=== PATIENT | male | born 1950 | race African-American/Black ===

== ENCOUNTER 2017-04-10 20:52 | Inpatient (IN) | payer MEDICARE, MEDICAID ==
[2017-04-10] MEDS ORDERED: Aspirin 300 MG Suppository ONE (21:09)
--- NOTE | 2017-04-10 21:10 | RAD ---
PORTABLE CHEST 04/10/17 PROVIDED CLINICAL HISTORY: ET repositioning. FINDINGS: There has been retraction of the endotracheal tube which now projects proximal to the heriberto. Enteric catheter is again noted, the tip of which is difficult to see with certainly but is below the diaphr agm. Bilateral patchy air space disease involving primarily the lower lung zones is again seen. IMPRESSION: As above. POS: ERASTO
[2017-04-10 21:28] LABS: Bilirubin Negative (Negative); Blood, Urine Large (Negative); Glucose, Urine (Dipstick) 500 mg/dL (Negative); Ketone, Urine Negative (Negative); Nitrite Negative (Negative); Protein, Urine (Dipstick) 100 mg/dL (Neg-Trace); Urobilinogen 0.2 mg/dL (0.2-1.0)
[2017-04-10 21:30] LABS: Bacteria/HPF None Seen HPF (None Seen)
[2017-04-10 21:39] LABS: Oxyhemoglobin 97.3 % (94.0-97.0); Sodium 140 mmol/L (135-148)
[2017-04-10 21:40] LABS: Renal Epithelial 0-3 HPF (0-3); Transitional Epithelial 0-3 HPF (0-3)
[2017-04-10 21:41] LABS: Mechanical Tidal Volume 500 ml; Modified Allen's Test POSITIVE; Spontaneous Rate 20 min; Vent YES
[2017-04-10 21:42] LABS: Mode SIMV; Pressure Support 10 cmH2O
[2017-04-10] MEDS ORDERED: Vancomycin HCl 1.5 GM in Sodium Chloride 0.9% 250 ML 300 ML IVPB SCH (22:15)
[2017-04-10] MEDS ORDERED: Norepinephrine 8 MG/0.9% NS 250 ML ONE (22:42)
[2017-04-10 22:49] LABS: Troponin I 4.959 ng/mL (< 0.028)
[2017-04-10] MEDS ORDERED: Heparin 10,000 UNITS/ 10 ML VIAL SLOW IVP SCH (23:45)
[2017-04-10] MEDS ORDERED: Heparin 25,000 units/D5W 500 ML IV SCH (23:45)
[2017-04-11 00:10] LABS: Lactic Acid - Sepsis 3.3 mmol/L (0.5-2.2)
[2017-04-11] MEDS ORDERED: Ondansetron HCl/PF 4 MG/2 ML Vial IVP PRN (00:22)
[2017-04-11] MEDS ORDERED: Ventilator Sedation Protocol 1 EACH FS ONE (00:22)
[2017-04-11] MEDS ORDERED: Acetaminophen 650 MG Suppository PR PRN (00:22)
[2017-04-11] MEDS ORDERED: CCU Electrolyte Replacement 1 EACH FS ONE (00:22)
[2017-04-11] MEDS ORDERED: Fentanyl 20 MCG/ML 250 ML IVPB SCH (00:34)
[2017-04-11] MEDS ORDERED: DISCONTINUE PREVIOUS NARCOTIC PAIN MEDICATIONS AND BENZODIAZEPINES FS SCH (00:34)
[2017-04-11] MEDS ORDERED: Potassium Phosphate 9 MMOL in Sodium Chloride 0.9% 100 ML IVPB PRN (00:35)
[2017-04-11] MEDS ORDERED: Potassium Chloride 20 MEQ TAB PO PRN (00:35)
[2017-04-11] MEDS ORDERED: Potassium Phosphate 15 MMOL in Sodium Chloride 0.9% 250 ML 250 ML IV PRN (00:35)
[2017-04-11] MEDS ORDERED: Magnesium Oxide 400 MG TAB PO PRN ×2 (00:35)
[2017-04-11] MEDS ORDERED: CCU ELECTROLYTE REPLACEMENT PROTOCOL FS PRN (00:35)
[2017-04-11] MEDS ORDERED: Magnesium 2 GM/NS 0.9% 100 ML 2 GM in Premix Bag 1 BAG IVPB PRN (00:35)
[2017-04-11] MEDS ORDERED: Potassium Phosphate 12 MMOL in Sodium Chloride 0.9% 250 ML 250 ML IV PRN (00:35)
[2017-04-11] MEDS ORDERED: Potassium Chloride 40 MEQ in Sodium Chloride 0.9% 250 ML 250 ML IVPB PRN (00:35)
[2017-04-11] MEDS: Sodium Chloride 0.9% 1,000 ML IV SCH ×3 (01:38→22:38)
[2017-04-11 02:32] LABS: Fibrinogen 349 mg/dL (253-463)
[2017-04-11 02:33] LABS: PTT 44.3 SEC (22.9-36.1); Prothrombin Time 17.6 SEC (12.0-14.7)
[2017-04-11 02:34] LABS: #Lymphocytes 1.3 thou/uL (1.20-3.40); #Monocytes 0.5 thou/uL (0.11-0.59); #Neutrophils 10.5 thou/uL (1.40-6.50); %Eosinophils 0.1 % (0.0-10.0); %Lymphocytes 10.3 % (21.0-51.0); %Monocytes 4.3 % (0.0-10.0); Hematocrit 34.7 % (42.0-52.0); Mean Platelet Volume 7.5 fL (7.4-10.4); Red Blood Cell (RBC) Count 3.76 mill/uL (4.70-6.10); White Blood Cell (WBC) Count 12.4 thou/uL (4.8-10.8)
[2017-04-11] MEDS: Cefepime 1 GM in Syringe 10 ML SLOW IVP SCH ×2 (02:40→14:34)
[2017-04-11 02:47] LABS: ALT (SGPT) 44 U/L (8-55); AST (SGOT) 97 U/L (5-34); Alkaline Phosphatase 92 U/L (40-150); Anion Gap 16 mmol/L (10-20); BUN (Urea Nitrogen) 12 mg/dL (8.4-25.7); Bilirubin, Total 0.4 mg/dL (0.2-1.2); Calc. Creatinine Clearance 69 mL/min (70-130); Calcium 7.4 mg/dL (7.8-10.44); Carbon Dioxide 19 mmol/L (23-31); Chloride 109 mmol/L (98-107); Estimated GFR-MDRD 63; Globulin 2.9 g/dL (2.4-3.5); Protein, Total 5.9 g/dL (5.8-8.1)
[2017-04-11 03:14] LABS: Troponin I 7.798 ng/mL (< 0.028)
--- NOTE | 2017-04-11 03:20 | HP ---
REASON FOR ADMISSION: Acute respiratory failure with hypoxia, septic shock, non -ST elevation NJ. HISTORY OF PRESENT ILLNESS: The patient was initially sent from [facility] to [place] [facility] for complaints of shortness of breath with low saturations. He also had a fever of 103 there. Patient was evaluated in [place] [facility]. He has chronic tracheal stoma. The endotracheal tube #7 was placed through the stoma and connected to the ventilator due to low saturations and acidosis with pH of 7.2. Then, patient was transferred here for higher level of care. Patient was paralyzed at [facility] for intubation. On arrival here, patient had systolic blood pressures dropping down to 70s and had to be placed on Levophed. He got total of 2 liters IV fluid here. His initial chest x-ray shows right lung infiltrate, likely aspiration. Patient has had blood and urine cultures drawn and given one dose of vancomycin and transferred to CCU. He also has a troponin of 4.9 with CK-MB of 10.4. Majority of this history is obtained by my talking to the ER physician, Dr. Mills, prior records and ER records as patient is sedated on the ventilator. 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 PERSONAL HISTORY: He is a resident of [facility]. No history of smoking, alcohol abuse, or drug usage. FAMILY HISTORY: Cannot be obtained as patient is currently on the ventilator. CURRENT MEDICATIONS: Per prior records, patient is on Norvasc 5 mg daily, aspirin 81 mg daily, atorvastatin 40 mg daily, Depakote 750 mg p.o. q.a.m., multivitamin 1 tab once daily, phenytoin 200 mg p.o. daily, Ultram p.r.n. for pain. REVIEW OF SYSTEMS: Cannot be obtained as patient is on the ventilator and is obtunded at present. PHYSICAL EXAMINATION: GENERAL: Patient is a 66-year-old male who is currently on the ventilator. VITAL SIGNS: Blood pressure on arrival was 110/70, later systolic blood pressures dropped down to 70s. Currently on Levophed. Patient's systolic blood pressure is around 90 now, pulse 110 per minute, respiratory rate is 16, temperature in [facility] was 103 degrees, is saturating 100% on 50% FIO2 on the ventilator. HEENT: Patient has tracheostomy with endotracheal tube inserted through the ostomy. The tube size is 7.0. Pupils are 3 mm and reacting sluggishly to right. Oral cavity patient has a nasogastric tube placed through the mouth. NECK: No elevated JVD. CARDIOVASCULAR: S1, S2 heard. Regular rhythm. RESPIRATORY: Air entry 1+ bilateral. Scattered rhonchi plus bilateral. ABDOMEN: Distended. The patient appears to have some discomfort on palpation of the abdomen. Bowel sounds are heard and no rigidity felt. EXTREMITIES: Patient has chronic wasting of both lower extremities, more so on the left. Mild peripheral edema, no ischemic ulcerations or gangrene. CENTRAL NERVOUS SYSTEM: Patient appears to have left hemiplegia. He has reflex withdrawal on right lower extremity. He was also seen moving his right upper extremity, but not the left upper. No other focal signs seen. PSYCHIATRIC: Cannot be assessed due to patient's current obtunded state on the ventilator. LABORATORY AND X-RAY FINDINGS: EKG done shows sinus tachycardia at 132 beats per minute. There are signs of LVH seen. White count of 13, H&H 13 and 41, platelet count 187 with 66% neutrophils, MCV is 87. PT, INR 14 and 1.1, PTT 35. Blood gas done at 9:30 p.m. shows a pH of 7.22, pCO2 of 53, pO2 of 213, bicarbonate of 21 on 100% FIO2 on SIMV. Sodium 139, potassium 5.0. Serum bicarbonate is 21, BUN 10, creatinine 1.28, glucose 387. Lactic acid was 6.3. Liver enzymes are within normal limits. Albumin is 3.9. Troponin I is 4.9 with CK-MB of 10.4. Initial troponin was 0.44. UA shows no signs of infection as such. A CT of the abdomen and pelvis results are pending at present. Chest x-ray done shows ET tube in place, bilateral patchy airspace disease is seen primarily in the lower lung zones. CLINICAL IMPRESSION AND PLAN: Patient will be admitted to ICU for septic shock , acute respiratory failure with hypoxia, non-ST elevation NJ. Patient's functional status is very poor and he is skilled nursing resident as well. Joel cultures have been obtained in the ER. He will be given 1 more liter of bolus for a total of 3 liters. I will also start him on stress dose of steroids along with broad spectrum antibiotics including cefepime, Levaquin, and vancomycin. He will be on aspirin 300 mg per rectal. Heparin drip has been started in the ER for his non-ST elevation NJ and will be continued. His overall prognosis is guarded. I have spoken to his , Ms. Adelso Talamantes. I have given complete updates of current labs and the plan. I also discussed code status with her and she would want him to be DNR. No chest compressions will be done on him, but she would like to continue the current ventilator and see how he does with weaning. We will consult Dr. Vega who is recreation facility manager for Pulmonology, Dr. Sena for Cardiology. Please note I have seen and examined patient on 04/10/2017. ROBERT
[2017-04-11] MEDS ORDERED: Dextrose 5% in Water 1,000 ML IV PRN (03:33)
[2017-04-11] MEDS ORDERED: Dextrose 50% Abboject 50 ML SYRINGE SLOW IVP PRN (03:33)
[2017-04-11] MEDS: HumaLOG 300 UNITS/3 ML VIAL SC PRN ×3 (04:25→15:58)
[2017-04-11 06:26] LABS: Troponin I 9.339 ng/mL (< 0.028)
[2017-04-11 07:26] LABS: Oxyhemoglobin 95.6 % (94.0-97.0); Sodium 140 mmol/L (135-148)
--- NOTE | 2017-04-11 07:43 | PDOC.PN ---
- Subjective Encounter Start Date: 04/11/17 Encounter Start Time: 07:42 Mr. Darden was seen today in follow-up of acute respiratory failure. He is intubated, but will open his eyes to voice. He appears comfortable. - Objective MAR Reviewed: Yes Vital Signs & Weight: Vital Signs (12 hours) Temp Pulse Resp BP BP Pulse Ox 04/11/17 07:00 103.0 F H 04/11/17 06:27 109 H 119/66 04/11/17 06:26 109 H 18 99 04/11/17 04:00 102.3 F H 04/11/17 03:24 18 04/11/17 01:46 126 H 18 97 04/11/17 01:11 102.8 F H 04/11/17 01:00 102.8 F H 115 H 18 111/65 99 Weight Weight 202 lb 9.677 oz Most Recent Monitor Data Heart Rate from ECG 110 NIBP 125/69 NIBP BP-Mean 91 Respiration from ECG 16 SpO2 100 I&O: 04/10/17 04/11/17 04/12/17 06:59 06:59 06:59 Intake Total 632 0 Output Total 645 140 Balance -13 -140 Result Diagrams: 04/12/17 04:50 04/12/17 04:50 Phys Exam - Physical Examination HEENT: PERRLA + rhonchi bilaterally, rales at the bases Cardiovascular: RRR, no significant murmur Gastrointestinal: soft, positive bowel sounds + mild distention Dx/Plan (1) Acute respiratory failure with hypoxemia Code(s): J96.01 - ACUTE RESPIRATORY FAILURE WITH HYPOXIA Status: Acute (2) Pneumonia Code(s): J18.9 - PNEUMONIA, UNSPECIFIED ORGANISM Status: Acute (3) Acute renal failure Status: Acute (4) Diabetes mellitus type 2 in obese Code(s): E11.69 - TYPE 2 DIABETES MELLITUS WITH OTHER SPECIFIED COMPLICATION; E66.9 - OBESITY, UNSPECIFIED Status: Acute (5) DIC (disseminated intravascular coagulation) Code(s): D65 - DISSEMINATED INTRAVASCULAR COAGULATION Status: Acute (6) CVA, old, aphasia Code(s): I69.320 - APHASIA FOLLOWING CEREBRAL INFARCTION Status: Acute (7) Sepsis Code(s): A41.9 - SEPSIS, UNSPECIFIED ORGANISM Status: Acute (8) NSTEMI (non-ST elevated myocardial infarction) Code(s): I21.4 - NON-ST ELEVATION (NSTEMI) MYOCARDIAL INFARCTION Status: Acute - Plan * Acute Respiratory Failure due to Pneumonia, with severe sepsis, accompanied by Acute renal failure, DIC, and elevated troponins. Patient also is hypotensive , and requiring pressors * Continue Vent support, and patient to be evaluated by Ornament Stapler today * Continue Levaquin, Cefipime, and Vancomycin * Continue Levophed for blood pressure support * Cardiology has been consulted for Elevated troponins, and Echo has been ordered * Consider initiating tube feeds * Prognosis is guarded.
[2017-04-11] MEDS: Norepinephrine 8 MG/0.9% NS 250 ML IVPB SCH ×2 (07:58→14:54)
--- NOTE | 2017-04-11 08:00 | RAD ---
PORTABLE CHEST ONE VIEW: 04/11/2017 at 4:22 a.m. HISTORY: Respiratory failure. FINDINGS/IMPRESSION: Comparison is made with the exam of 12:04 a.m. from the same date. No significant interval change is seen. POS: OFF
--- NOTE | 2017-04-11 08:13 | RAD ---
CHEST 1 VIEW: HISTORY: Central line placement. COMPARISON: Chest 1 view same day at 4:22 a.m. FINDINGS: The patient is being fed through a tracheostomy tube with endotracheal tube tip extending out to the heriberto approximately 2 cm. The central venous catheter is seen with tip at the right atrium without pneumothorax. Patchy opacities are present throughout the lungs bilaterally, similar. NO large effu asaf. cardiac silhouette is enlarged. IMPRESSION: No significant change in radiographic appearance of the chest. POS: FRED
--- NOTE | 2017-04-11 08:28 | CT ---
PRELIMINARY REPORT/[facility]/EMERGENCY AFTER HOURS PROCEDURE: EXAM: CT Abdomen and Pelvis Without Intravenous Contrast CLINICAL HISTORY: 66 years old, male; Signs and symptoms; Bloating; Patient HX: Eval for possible sbo or perf; Er10; 66 yo m is a transfer from another facility for respiratory failure. Pt had temp of 103, o2 stat in 70s , and BP of 160/70 upon ems arrival. Pt is hemiplegic from prior stroke. Nonverbal but able to respon d with head nods. TECHNIQUE: Axial computed tomography images of the abdomen and pelvis without intravenous contrast. Coronal reformatted images were created and reviewed. COMPARISON: No relevant prior studies available. FINDINGS: Prominent airspace opacities in the lower lungs bilaterally, greater on the right. Findings are lexis tible with bilateral pneumonia and/or aspiration. No significant pleural fluid. Prior cholecystectomy, no significant biliary tree dilation. No hydronephrosis of either kidney. No visible ureteral calculus. No perinephric fluid. The liver appears somewhat enlarged, with right lobe length of 22 cm. No definite/significant focal hepatic abnormality. Unremarkable appearance of the spleen, adrenal glands, and pancreas. No free air, ascites, or bowel distention. NG tube present. Tip extends into the stomach, but only 2-3 cm past the GE junction. Small umbilical hernia, containing only fat. Prominent aortic and other vascular calcifications. No evidence for abdominal aortic aneurysm. No retroperitoneal adenopathy. CT pelvis: The appendix is not identified with certainty, however no pericecal inflammatory changes are seen. There are no CT findings to strongly suggest diverticulitis. Shelley catheter in the urinary bladder. Prostate enlargement with transverse diameter of 5.5 cm. Possibly some mild diffuse urinary bladder wall thickening. This may be related to the prostate enlar gement. While nonspecific, this could also indicate evidence for cystitis. Please correlate clinically. IMPRESSION: No free air or bowel distention. No evidence for bowel obstruction. No evidence for appendicitis or diverticulitis. Prostate enlargement and urinary bladder wall thickening, see above. Prominent airspace opacities in the lower lungs bilaterally, compatible with bilateral pneumonia and/ or aspiration. Other findings discussed above. Thank you for allowing us to participate in the care of your patient. Dictated and Authenticated by: Csae Mims MD 04/11/2017 1:59 AM Central Time ([place] & [place]) FINAL REPORT CT ABDOMEN AND PELVIS WITHOUT CONTRAST: FINDINGS: There are bibasilar alveolar infiltrates and consolidation seen in both posterior lung bases. No evidence of small bowel obstruction. No free intraperitoneal air. I am in agreement with the preli minary report. Code QA POS: SJChristina
[2017-04-11] MEDS: Aspirin 300 MG Suppository PR SCH (08:37)
[2017-04-11] MEDS: Acetaminophen 325 MG TAB PO PRN (08:37)
[2017-04-11] MEDS: Divalproex Sodium 250 MG (DR) TAB PO SCH (08:37)
[2017-04-11] MEDS: Famotidine/PF 20 mg/2ml Vial SLOW IVP SCH ×2 (08:38→19:44)
[2017-04-11 08:43] LABS: Mechanical Tidal Volume 500 ml; Mode SIMV.PSV; Modified Allen's Test POSITIVE; Pressure Support 10 cmH2O; Vent YES
[2017-04-11] MEDS: Propofol 1,000 MG/100 ML VIAL IV PRN ×2 (09:55→17:39)
--- NOTE | 2017-04-11 10:47 | CON ---
DATE OF CONSULTATION: 04/11/2017 CONSULTING PHYSICIAN: Dr. Jj. REASON FOR CONSULTATION: Dislodgement of tracheostomy and respiratory failure requiring mechanical v entilation. HISTORY OF PRESENT ILLNESS: Mr. Darden is a 66-year-old male originally seen by Dr. Tejada back in 10 10 when he presented with respiratory failure secondary to pneumonia and obstructive sleep apnea. He underwent tracheostomy placement at that time and that has been in place for many years. He was at a detention, apparently short time ago, he pulled out his tracheostomy tube, I am not sure how reva g it was out prior to being admitted, he was brought to the emergency room last night with fever, pne umonia and low O2 sats. A size #7 endotracheal tube was placed through his stoma and it was connecte d to ventilator. They tried different size tracheostomies, but were unable to pass it. PAST MEDICAL HISTORY: 1. Massive stroke. 2. Bedbound status. 3. Left hemiplegia. 4. Obstructive sleep apnea. 5. Diabetes mellitus type 2. 6. Hyperlipidemia. 7. Gastroesophageal reflux. 8. Glaucoma. PAST SURGICAL HISTORY: 1. Tracheostomy placement. 2. At some point, he had a feeding tube, but has been removed. MEDICATIONS PRIOR TO ADMISSION: Aspirin, Norvasc, atorvastatin, Depakote, multivitamins, phenytoin, Ultram. FAMILY MEDICAL HISTORY: Unremarkable. REVIEW OF SYSTEMS: Cannot be obtained as the patient is on the ventilator and cannot talk. PHYSICAL EXAMINATION: VITAL SIGNS: Pulse 105, blood pressure 130/70, O2 sat 100%, respiratory rate 18. GENERAL: The patient is sedated on mechanical ventilation. HEENT: Remarkable for right naris NG tube. He has a size #7 endotracheal tube going through his nec k stoma. CARDIOVASCULAR: S1, S2, slightly tachycardic. LUNGS: Coarse rhonchi bilaterally. ABDOMEN: Soft, obese, nontender. EXTREMITIES: No edema. LABORATORY DATA AND X-RAY FINDINGS: White blood cell count 12.4, hemoglobin 11, hematocrit 34, plate let count 172. INR 1.4. PH 7.22, pCO2 53, pO2 of 213 and that was on SIMV rate 14, tidal volume 500 , PEEP 5, pressure support 10. Sodium 140, potassium 4.3, chloride 109, CO2 19, BUN 12, creatinine 1 .3, glucose 412. Troponin 9.3. His chest x-ray shows infiltrate on the left. ASSESSMENT: 1. Pneumonia. 2. Elevated troponin. 3. History of tracheostomy that is chronic indwelling. 4. History of massive stroke. PLAN: 1. I discussed with Dr. Delacruz about revising the trach in the operating room tomorrow. 2. Continue antibiotics. 3. Wean off Levophed drip as tolerated, which is currently being given for septic shock. 4. Continue steroids. 5. I will notify Dr. Tejada of the patient's admission.
[2017-04-11] MEDS: Vancomycin HCl 1.25 GM in Sodium Chloride 0.9% 250 ML 250 ML IVPB SCH (11:34)
[2017-04-11] MEDS: Lorazepam 2 MG/ML VIAL SLOW IVP PRN ×3 (12:21→22:32)
--- NOTE | 2017-04-11 13:15 | CON ---
DATE OF CONSULTATION: 04/11/2017 REASON FOR CONSULTATION: Elevated troponin and respiratory failure. PRIMARY PHARMACY BENEFITS COORDINATOR: Dr. Jesus Lai. HISTORY OF PRESENT ILLNESS: Mr. Darden is an unfortunate 66-year-old gentleman who has been seen an d evaluated by Dr. Jesus Lai over the last 11 years. He was first seen in 2005 where he had a large CVA. He had EKG changes in addition to elevated troponin at that time. He has had a followup stress study performed in 2009 that was negative for ischemia. He recently presented with respiratory failure. He pulled his trach out. He was sedated. According to the nurse, Eliceo, he was neurologically intact prior to propofol. He d enied chest pain or pressure. He states he was comfortable. PAST MEDICAL AND SURGICAL HISTORY: CVA, bedbound, acid reflux, hyperlipidemia, diabetes mellitus, ob structive sleep apnea, hemiplegia, glaucoma and tracheostomy. CURRENT MEDICATIONS: Norvasc, atorvastatin, aspirin, Depakote, multivitamin, phenytoin and Ultram. REVIEW OF SYSTEMS: Unobtainable. PHYSICAL EXAMINATION: GENERAL: He is currently sedated. VITAL SIGNS: Blood pressure 148/76, pulse 102 and respirations 20. NEUROLOGIC: The patient is alert and oriented x3 with no focal neurologic deficits. HEENT: Sclerae without icterus. Mouth has moist mucous membranes with normal pallor. NECK: No JVD. Carotid upstroke brisk. No bruits bilaterally. LUNGS: Clear to auscultation with unlabored respirations. BACK: No scoliosis or kyphosis. CARDIAC: Regular rate and rhythm with normal S1 and S2. No S3 or S4 noted. No significant rubs, murmurs, thrills, or gallops noted throughout the precordium. PMI is not displa wilian. There is no parasternal heave. ABDOMEN: Soft, nontender, nondistended. No peritoneal signs present. No hepatosplenomegaly. No abnormal striae. EXTREMITIES: 2+ femoral and 2+ dorsalis pedis pulses. No cyanosis, clubbing, or edema. SKIN: No gross abnormalities. PERTINENT LABORATORY DATA: Hemoglobin 11.4. Creatinine 1.38 with a chloride of 109. Peak troponin 9.339. IMAGING DATA: Initial EKG did show ST segment depression suggesting ischemia, which is now improved after intubation. IMPRESSION: 1. Elevated troponin. 2. Previous history of cerebrovascular accident. 3. Diabetes mellitus. 4. Respiratory failure. RECOMMENDATIONS: From a CV standpoint, would recommend conservative therapy. His EKG has normalized . He was not complaining of any symptoms prior to this episode. His respiratory failure, likely rel ated to removal of his trach. At this point, would recommend conservative therapy given his comorbid ities. Would continue aspirin and atorvastatin. He is off pressors. Would add low dose Coreg. We will continue to follow with you.
--- NOTE | 2017-04-11 14:58 | CON ---
DATE OF CONSULTATION: 04/11/2017 REASON FOR CONSULTATION: Tracheostomy stenosis. HISTORY OF PRESENT ILLNESS: The patient is a 66-year-old black male. In 2005, I placed a tracheosto my and PEG tube. His PEG tube was subsequently left out after removed at several times. He has had tracheostomy since that time I saw him. I subsequently performed a cholecystectomy in 2008. I have not seen him subsequently. He presented to the hospital with fever, evidence of sepsis, respiratory failure, with a tracheostomy tube that was apparently removed by him, but we are not certain how long before he presented it was removed. The patient was intubated with a size #7 endotracheal tube. Attempts at placing another tr acheostomy tube; however, we are unsuccessful and I am consulted for further assistance with this. Patient is currently sedated in the intensive care unit on ventilator. He is receiving pressors (usi ng Levophed). PAST MEDICAL HISTORY: 1. History of cerebrovascular accident. 2. Bed bound. 3. Left hemiplegia. 4. Obstructive sleep apnea. 5. Diabetes mellitus. 6. Hyperlipidemia. 7. Reflux. PAST SURGICAL HISTORY: 1. Tracheostomy placement. 2. PEG tube placement. 3. Cholecystectomy. MEDICATIONS PRIOR TO ADMISSION: Include Norvasc, atorvastatin, Depakote, phenytoin, Ultram. PERSONAL/SOCIAL HISTORY: He lives in a care home. PHYSICAL EXAMINATION: VITAL SIGNS: His pulse is 98, blood pressure 153/81, oxygen saturation 100%. GENERAL: Elderly obese black male resting in bed. HEENT: He has an endotracheal tube emanating from his tracheostomy site. Remainder of neck is suppl e and nontender. LUNGS: Clear to auscultation. CARDIAC: Regular rate and rhythm. ABDOMEN: Obese but soft. 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 It is un known how long this is out before it was recannulated. PLAN: In the operating room tomorrow, I will revise his tracheostomy and place a new tracheostomy tu be.
[2017-04-11] MEDS: Atorvastatin Calcium 40 MG TAB PO SCH (19:44)
[2017-04-11] MEDS: Levofloxacin 750 mg/D5W 500 MG in Premix Bag 1 BAG IVPB SCH (19:44)
[2017-04-12] MEDS: HumaLOG 300 UNITS/3 ML VIAL SC PRN ×5 (00:10→21:27)
[2017-04-12] MEDS: Vancomycin HCl 1.25 GM in Sodium Chloride 0.9% 250 ML 250 ML IVPB SCH ×2 (00:10→13:58)
[2017-04-12] MEDS: Propofol 1,000 MG/100 ML VIAL IV PRN (02:02)
[2017-04-12] MEDS: Cefepime 1 GM in Syringe 10 ML SLOW IVP SCH ×2 (02:02→17:54)
[2017-04-12] MEDS: Sodium Chloride 0.9% 1,000 ML IV SCH ×2 (05:51→17:54)
[2017-04-12 05:52] LABS: Anion Gap 11 mmol/L (10-20); BUN (Urea Nitrogen) 12 mg/dL (8.4-25.7); Calc. Creatinine Clearance 95 mL/min (70-130); Carbon Dioxide 22 mmol/L (23-31); Chloride 112 mmol/L (98-107); Estimated GFR-MDRD 90
[2017-04-12] MEDS: Potassium Chloride 40 MEQ in Premix Bag 1 BAG IVPB PRN (06:12)
[2017-04-12 06:21] LABS: Mean Platelet Volume 7.5 fL (7.4-10.4); Red Blood Cell (RBC) Count 3.58 mill/uL (4.70-6.10); White Blood Cell (WBC) Count 15.6 thou/uL (4.8-10.8)
[2017-04-12 06:29] LABS: Band 43 % (5-11); Metamyelocyte 3 % (0-0); Myelocyte 1 % (0-0); Neutrophil 51 % (42-75)
[2017-04-12 07:14] LABS: Oxyhemoglobin 92.3 % (94.0-97.0); Sodium 146 mmol/L (135-148)
[2017-04-12 07:15] LABS: Mechanical Tidal Volume 500 ml; Mode SIMV/PSV; Pressure Support 10 cmH2O; Vent YES
--- NOTE | 2017-04-12 07:50 | PRG ---
DATE OF SERVICE: 04/12/2017 SUBJECTIVE: Mr. Darden continues to be sedated. He is currently on propofol. OBJECTIVE: VITAL SIGNS: Blood pressure 178/61, pulse 94, respirations 22. LUNGS: Clear to auscultation. HEART: Regular rate and rhythm. ABDOMEN: Soft, nontender, nondistended. EXTREMITIES: No edema. PERTINENT LABORATORY DATA: Include a creatinine of 1.1 with a potassium of 3.0, chloride 112. IMPRESSION: 1. Elevated troponin. 2. Hypoxia after removal of trach. 3. Previous cerebrovascular accident. 4. Coronary artery disease. RECOMMENDATIONS: At this point, we will continue conservative therapy. He is currently on antibioti c therapy for potential sepsis. Would continue statin therapy in addition to aspirin. May also bene fit from low dose beta benedict therapy.
--- NOTE | 2017-04-12 08:35 | PRG ---
DATE OF SERVICE: 04/12/2017 He is intubated on the vent with a trach in place. He is going for revision this morning of his trac heostomy site. He is sedated. He is encephalopathic. PHYSICAL EXAMINATION: VITAL SIGNS: His sats are 99, blood pressure 150/57, pulse 80, respirations 18. CHEST: Chest revealed bilateral rhonchi and crackles. CARDIAC: Sinus tachycardia. ABDOMEN: Soft. NEURO: Neurologically sedated. White count 15,000, H&H 11 and 32, platelet count 146, pO2 is 67, pCO2 of 86.47, rate of 20, 40%, 500 tidal volume, sodium is normal. Electrolytes are normal. Potassium is 3. X-ray shows bilateral pneumonia. IMPRESSION: 1. Respiratory failure. 2. Cerebrovascular accident. 3. Pulmonary infiltrate. 4. Aspiration pneumonia. PLAN: Once the trach has been revised, we will start weaning. In the meantime, continue antibiotics , Maxipime, Levaquin and steroids. I will follow. One-half hour critical care time.
--- NOTE | 2017-04-12 08:43 | PDOC.PN ---
- Subjective Encounter Start Date: 04/12/17 Encounter Start Time: 08:41 Mr. Darden was seen today in follow-up of Pneumonia with sepsis. He is intubated. He is awake and trying to communicate with me. I am not able to make out what he is trying to say. - Objective MAR Reviewed: Yes Vital Signs & Weight: Vital Signs (12 hours) Temp Pulse Resp BP Pulse Ox 04/12/17 07:00 97.7 F 04/12/17 06:26 95 117/61 04/12/17 06:00 22 H 04/12/17 04:00 99.9 F H 22 H 04/12/17 02:00 22 H 04/12/17 00:00 98.8 F 104 H 22 H 100 04/11/17 23:23 95 18 100 04/11/17 22:00 22 H Weight Admit Weight 202 lb 9.664 oz Weight 202 lb 9.664 oz Most Recent Monitor Data Heart Rate from ECG 96 NIBP 114/61 NIBP BP-Mean 78 Respiration from ECG 14 SpO2 99 I&O: 04/11/17 04/12/17 04/13/17 06:59 06:59 06:59 Intake Total 632 3345 Output Total 645 5155 220 Balance -13 -1810 -220 Result Diagrams: 04/12/17 04:50 04/12/17 04:50 Additional Labs: Accuchecks 04/12/17 04/12/17 04/11/17 05:11 00:08 15:53 POC Glucose 303 H 383 H 318 H 04/11/17 10:05 POC Glucose 316 H Phys Exam - Physical Examination HEENT: PERRLA Respiratory: no wheezing + coarse breath sounds Cardiovascular: RRR, no significant murmur Gastrointestinal: soft, non-tender, positive bowel sounds Musculoskeletal: no edema Dx/Plan (1) Acute respiratory failure with hypoxemia Code(s): J96.01 - ACUTE RESPIRATORY FAILURE WITH HYPOXIA Status: Acute (2) Pneumonia Code(s): J18.9 - PNEUMONIA, UNSPECIFIED ORGANISM Status: Acute (3) Acute renal failure Status: Acute (4) Diabetes mellitus type 2 in obese Code(s): E11.69 - TYPE 2 DIABETES MELLITUS WITH OTHER SPECIFIED COMPLICATION; E66.9 - OBESITY, UNSPECIFIED Status: Acute (5) DIC (disseminated intravascular coagulation) Code(s): D65 - DISSEMINATED INTRAVASCULAR COAGULATION Status: Acute (6) CVA, old, aphasia Code(s): I69.320 - APHASIA FOLLOWING CEREBRAL INFARCTION Status: Acute (7) Sepsis Code(s): A41.9 - SEPSIS, UNSPECIFIED ORGANISM Status: Acute (8) NSTEMI (non-ST elevated myocardial infarction) Code(s): I21.4 - NON-ST ELEVATION (NSTEMI) MYOCARDIAL INFARCTION Status: Acute - Plan * Pneumonia with acute respiratory failure and sepsis- he remains on mechanical ventilation * He is now off Levophed * Continue Vancomycin, Cefepime, and Levaquin * Plan is to have the tracheostomy revised today * DM- blood glucose is elevated- will add scheduled long acting Insulin * Seizure disorder- Dilatin to be given IV today, and after procedure can change back to via tube * Replace potassium as per protocol .
[2017-04-12] MEDS: Lorazepam 2 MG/ML VIAL SLOW IVP PRN ×3 (08:56→23:15)
[2017-04-12] MEDS: Famotidine/PF 20 mg/2ml Vial SLOW IVP SCH ×2 (08:57→21:26)
[2017-04-12] MEDS ORDERED: FLU VACC TS2017-18 (>65YR) 0.5 ML SYRINGE IM ONE (09:00)
[2017-04-12] MEDS: Aspirin 300 MG Suppository PR SCH (09:00)
--- NOTE | 2017-04-12 09:26 | RAD ---
PORTABLE CHEST: HISTORY: Dyspnea. Ventilator followup. COMPARISON: 04/11/17. Tracheostomy device again noted. Central line unchanged. There are bilateral lung infiltrates. The re are rather prominent right perihilar infiltrates and extensive alveolar infiltrates throughout the left lung. No significant interval change. IMPRESSION: No significant interval change from 04/11/17. POS: OFF
[2017-04-12] MEDS: Fosphenytoin Sodium 200 MG in Sodium Chloride 0.9% 100 ML IVPB SCH (09:48)
[2017-04-12] MEDS: Divalproex Sodium 250 MG (DR) TAB PO SCH (09:49)
[2017-04-12] MEDS: Insulin Detemir 100 UNITS/ML 12 UNITS in Pre-Filled Syringe 1 EACH SC SCH ×2 (09:49→21:26)
[2017-04-12 11:27] LABS: Vancomycin, Trough 16.1 ug/mL
[2017-04-12] MEDS ORDERED: Midazolam HCl 2 mg/2 ml Vial ONE (15:31)
[2017-04-12] MEDS ORDERED: Fentanyl 100 MCG/2 ML VIAL ONE (15:31)
[2017-04-12] MEDS ORDERED: Bupivacaine/Epinephrine 0.25% 30 ML VIAL ONE ×2 (15:36→16:05)
[2017-04-12] MEDS ORDERED: Propofol 200 MG/20 ML VIAL ONE (16:30)
[2017-04-12] MEDS ORDERED: Lidocaine 1% PF 5 ML VIAL ONE (16:30)
[2017-04-12] MEDS ORDERED: PHENYLEPHRINE-NS 100 MCG/ML 10 ML SYRINGE ONE (16:30)
[2017-04-12] MEDS: Atorvastatin Calcium 40 MG TAB PO SCH (21:26)
[2017-04-12] MEDS: Levofloxacin 750 mg/D5W 500 MG in Premix Bag 1 BAG IVPB SCH (21:31)
[2017-04-13] MEDS: Vancomycin HCl 1.25 GM in Sodium Chloride 0.9% 250 ML 250 ML IVPB SCH ×2 (00:05→12:31)
[2017-04-13] MEDS: Propofol 1,000 MG/100 ML VIAL IV PRN ×4 (00:05→19:57)
[2017-04-13] MEDS: Cefepime 1 GM in Syringe 10 ML SLOW IVP SCH ×2 (03:27→15:06)
[2017-04-13] MEDS: Sodium Chloride 0.9% 1,000 ML IV SCH ×3 (03:28→21:25)
[2017-04-13] MEDS: HumaLOG 300 UNITS/3 ML VIAL SC PRN ×4 (04:09→23:16)
[2017-04-13 06:44] LABS: Mechanical Tidal Volume 500 ml; Mode SIMV/PSV; Modified Allen's Test NOT DONE; Oxyhemoglobin 93.7 % (94.0-97.0); Pressure Support 10 cmH2O; Sodium 149 mmol/L (135-148); Vent YES
[2017-04-13] MEDS: Aspirin 300 MG Suppository PR SCH (08:03)
[2017-04-13] MEDS: Insulin Detemir 100 UNITS/ML 12 UNITS in Pre-Filled Syringe 1 EACH SC SCH (08:08)
[2017-04-13] MEDS: Fosphenytoin Sodium 200 MG in Sodium Chloride 0.9% 100 ML IVPB SCH (08:08)
[2017-04-13] MEDS: Famotidine/PF 20 mg/2ml Vial SLOW IVP SCH (08:08)
[2017-04-13] MEDS: Divalproex Sodium 250 MG (DR) TAB PO SCH (08:18)
--- NOTE | 2017-04-13 08:42 | RAD ---
PORTABLE CHEST: HISTORY: Respiratory distress. COMPARISON: Prior day's exam. FINDINGS: A tracheostomy tube is present. The NG tube and the right-sided central line are unchanged in positi on. Interstitial alveolar lung changes are stable. IMPRESSION: Interval placement of tracheostomy tube, which is in satisfactory position; otherwise stable chest. POS: [facility]
--- NOTE | 2017-04-13 11:28 | PDOC.PN ---
- Subjective Encounter Start Date: 04/13/17 Encounter Start Time: 10:40 Subjective: on trach and vent, awakens to touch -: is on mild sedation - Objective MAR Reviewed: Yes Vital Signs & Weight: Vital Signs (12 hours) Temp Pulse Resp BP Pulse Ox 04/13/17 11:01 90 131/77 04/13/17 10:00 14 04/13/17 08:00 98.3 F 90 14 99 04/13/17 06:18 94 118/69 04/13/17 06:16 94 35 H 100 04/13/17 06:00 32 H 04/13/17 04:00 98.1 F 14 04/13/17 02:30 89 102/56 L 04/13/17 02:00 14 04/13/17 01:13 87 106/50 L 04/13/17 00:00 98.0 F 39 H Weight Admit Weight 202 lb 9.664 oz Weight 202 lb 9.664 oz Most Recent Monitor Data Heart Rate from ECG 93 NIBP 131/77 NIBP BP-Mean 91 Respiration from ECG 16 SpO2 100 I&O: 04/12/17 04/13/17 04/14/17 06:59 06:59 06:59 Intake Total 3345 2819 60 Output Total 5155 1990 400 Balance -1810 829 -340 Result Diagrams: 04/12/17 04:50 04/12/17 04:50 Additional Labs: Accuchecks 04/13/17 04/13/17 04/12/17 10:39 04:05 21:25 POC Glucose 253 H 269 H 285 H 04/12/17 04/12/17 17:38 11:57 POC Glucose 309 H 323 H Phys Exam - Physical Examination HEENT: PERRLA, moist MMs Neck: no JVD trach+ Respiratory: no wheezing rhonchi+ Cardiovascular: RRR, no significant murmur Gastrointestinal: soft, non-tender, positive bowel sounds Musculoskeletal: pulses present chronic wasting and foot drop of b/l LE Dx/Plan (1) Acute respiratory failure with hypoxemia Code(s): J96.01 - ACUTE RESPIRATORY FAILURE WITH HYPOXIA Status: Acute Comment: had revision of his trach (2) NSTEMI (non-ST elevated myocardial infarction) Code(s): I21.4 - NON-ST ELEVATION (NSTEMI) MYOCARDIAL INFARCTION Status: Acute (3) Pneumonia Code(s): J18.9 - PNEUMONIA, UNSPECIFIED ORGANISM Status: Acute Qualifiers: Pneumonia type: aspiration pneumonia Aspiration pneumonia type: due to regurgitated food (4) Sepsis Code(s): A41.9 - SEPSIS, UNSPECIFIED ORGANISM Status: Acute Qualifiers: Sepsis type: sepsis due to unspecified organism Qualified Code(s): A41.9 - Sepsis, unspecified organism (5) Dyslipidemia Code(s): E78.5 - HYPERLIPIDEMIA, UNSPECIFIED Status: Chronic (6) GERD (gastroesophageal reflux disease) Code(s): K21.9 - GASTRO-ESOPHAGEAL REFLUX DISEASE WITHOUT ESOPHAGITIS Status: Chronic Qualifiers: Esophagitis presence: esophagitis presence not specified Qualified Code(s) : K21.9 - Gastro-esophageal reflux disease without esophagitis (7) Obesity (BMI 30.0-34.9) Code(s): E66.9 - OBESITY, UNSPECIFIED Status: Chronic (8) CVA, old, aphasia Code(s): I69.320 - APHASIA FOLLOWING CEREBRAL INFARCTION Status: Chronic (9) Diabetes mellitus type 2 in obese Code(s): E11.69 - TYPE 2 DIABETES MELLITUS WITH OTHER SPECIFIED COMPLICATION; E66.9 - OBESITY, UNSPECIFIED Status: Chronic - Plan on broad spectrum antibiotics, vanc, cefipime and levaquin -: steroids iv, asp, lovenox for dvt prophylaxis -: oral phenytoin and depakote -: ng feeds if ok with Pulm -: weaning per pulm advice * . Review of Systems - Medications/Allergies Allergies/Adverse Reactions: Allergies Allergy/AdvReac Type Severity Reaction Status Date / Time No Known Drug Allergies Allergy Verified 03/17/16 05:25 Medications: Current Medications Acetaminophen (Tylenol) 650 mg [place] Q4H PRN PRN Reason: Headache/Fever or Pain Last Admin: 04/11/17 02:31 Dose: 650 mg Acetaminophen (Tylenol) 650 mg PO Q4H PRN PRN Reason: Headache/Fever or Pain Last Admin: 04/11/17 08:37 Dose: 650 mg Albuterol/Ipratropium (Duoneb) 3 ml NEB [id number] FLEX Last Admin: 04/13/17 06:16 Dose: 3 ml Aspirin (Aspirin) 300 mg [place] DAILY FLEX Last Admin: 04/13/17 08:03 Dose: 300 mg Atorvastatin Calcium (Lipitor) 40 mg PO HS [facility] Last Admin: 04/12/17 21:26 Dose: 40 mg Dextrose/Water (Dextrose 50%) 25 gm SLOW IVP PRN PRN PRN Reason: Hypoglycemia Divalproex Sodium (Depakote) 750 mg PO QAM [facility] Last Admin: 04/13/17 08:18 Dose: 750 mg Famotidine (Pepcid) 20 mg SLOW IVP Q12HR [facility] Last Admin: 04/13/17 08:08 Dose: 20 mg Glucagon (Glucagon) 1 mg IM PRN PRN PRN Reason: Hypoglycemia Cefepime HCl 1 gm/ Syringe 10 mls @ 120 mls/hr SLOW IVP 0300,1500 [facility] Last Admin: 04/13/17 03:27 Dose: 10 mls Levofloxacin 500 mg/ Device 100 mls @ 100 mls/hr IVPB Q24HR [facility] Last Admin: 04/12/17 21:31 Dose: 100 mls Norepinephrine Bitartrate (Levophed) 250 mls @ 0 mls/hr IVPB INF [facility]; Titrate PRN Reason: Protocol Last Admin: 04/11/17 14:54 Dose: 250 mls Sodium Chloride (Normal Saline 0.9%) 1,000 mls @ 100 mls/hr IV .Q10H [facility] Last Admin: 04/13/17 03:28 Dose: 1,000 mls Vancomycin HCl 1.25 gm/ Sodium (Chloride) 250 mls @ 166.67 mls/hr IVPB 1200, 2359 [facility] Last Admin: 04/13/17 00:05 Dose: 250 mls Fentanyl (Fentanyl Cadd) 250 mls @ 0 mls/hr IVPB INF FLEX; Titrate PRN Reason: Protocol Stop: 05/11/17 00:34 Fentanyl Citrate (Fentanyl Bolus) 250 mls @ 0 mls/hr IVPB PRN PRN; As Directed PRN Reason: Breakthrough pain Stop: 05/11/17 00:34 Potassium Chloride 40 meq/ (Sodium Chloride) 270 mls @ 135 mls/hr IVPB ASDIR PRN PRN Reason: FOR SERUM K+ 2.5 - 3.5 Potassium Chloride 40 meq/ (Device) 100 mls @ 50 mls/hr IVPB ASDIR PRN PRN Reason: FOR SERUM K+ 2.5 - 3.5 Last Admin: 04/12/17 06:12 Dose: 100 mls Magnesium Sulfate 1 gm/ Sodium (Chloride) 102 mls @ 102 mls/hr IV PRN PRN PRN Reason: MAG LEVEL 1.4 - 2.0 Magnesium Sulfate 2 gm/ Device 100 mls @ 100 mls/hr IVPB ASDIR PRN PRN Reason: MAGNESIUM < 1.4 Potassium Phosphate 9 mmol/ (Sodium Chloride) 103 mls @ 25.75 mls/hr IVPB ASDIR PRN PRN Reason: Phosphate 1.0-1.8 Potassium Phosphate 12 mmol/ (Sodium Chloride) 254 mls @ 63.5 mls/hr IV ASDIR PRN PRN Reason: Serum phosphate 0.5-0.9 Potassium Phosphate 15 mmol/ (Sodium Chloride) 255 mls @ 63.75 mls/hr IV ASDIR PRN PRN Reason: Serum Phos < 0.5 Dextrose/Water (D5w) 1,000 mls @ 0 mls/hr IV .Q0M PRN; As Directed PRN Reason: Hypoglycemia Fosphenytoin Sodium 200 mg/ (Sodium Chloride) 104 mls @ 208 mls/hr IVPB DAILY [facility] Last Admin: 04/13/17 08:08 Dose: 104 mls Insulin Detemir 12 units/ (Miscellaneous Medication) 0.12 mls @ 0 mls/hr SC BID [facility] Last Admin: 04/13/17 08:08 Dose: 0.12 mls Insulin Human Lispro (Humalog) 0 units SC .MODERATE SLIDING SC PRN PRN Reason: Moderate Correctional Scale Last Admin: 04/13/17 10:39 Dose: 6 unit Lorazepam (Ativan) 2 mg SLOW IVP Q2H PRN PRN Reason: Anxiety to achieve Ulrich 2-3 Stop: 05/11/17 00:34 Last Admin: 04/12/17 23:15 Dose: 2 mg Magnesium Oxide (Magnesium Oxide) 400 mg PO BIDPRN PRN PRN Reason: FOR SERUM MAG 1.4 - 2.0 Magnesium Oxide (Magnesium Oxide) 800 mg PO PRN PRN PRN Reason: FOR SERUM MAG < 1.4 Methylprednisolone Sodium Succinate (Solu-Medrol) 40 mg IVP Q6HR [facility] Last Admin: 04/13/17 05:40 Dose: 40 mg Miscellaneous Medication (Phos-Nak) 1 pkt PO TIDPRN PRN PRN Reason: FOR PHOS LEVEL 1.0 - 1.8 Miscellaneous Medication (Phos-Nak) 2 pkt PO TIDPRN PRN PRN Reason: FOR PHOS LEVEL 0.5 - 1.0 Morphine Sulfate (Morphine) 2 mg IVP Q2H PRN PRN Reason: Breakthrough pain Stop: 05/11/17 00:34 Discontinue Previous Narcotic Pain Medications And Benzodiazepines 1 each FS .ONE FLEX Stop: 05/11/17 00:34 Ccu Electrolyte (Replacement Protocol) 0 each FS PRN PRN PRN Reason: FOR ELECTROLYTE REPLACEMENT Ondansetron HCl (Zofran) 4 mg IVP Q6H PRN PRN Reason: Nausea/Vomiting Potassium Chloride (K-Dur) 40 meq PO ASDIR PRN PRN Reason: FOR SERUM K+ 2.5 - 3.5 Potassium Chloride (Klor-Con) 40 meq PER TUBE ASDIR PRN PRN Reason: FOR SERUM K+ 2.5-3.5 Propofol (Diprivan) 1,000 mg IV INF PRN; Protocol PRN Reason: TO ACHIEVE ULRICH SCORE 2-3 Stop: 05/11/17 00:34 Last Admin: 04/13/17 08:03 Dose: 1,000 mg Sodium Chloride (Flush - Normal Saline) 10 ml IVF Q12HR [facility] Last Admin: 04/13/17 08:09 Dose: 10 ml Sodium Chloride (Flush - Normal Saline) 10 ml IVF PRN PRN PRN Reason: Saline Flush
[2017-04-13] MEDS: Morphine 4 MG/ML VIAL SLOW IVP PRN ×3 (13:43→23:27)
[2017-04-13] MEDS: Insulin Detemir 100 UNITS/ML 18 UNITS in Pre-Filled Syringe 1 EACH SC SCH (19:51)
[2017-04-13] MEDS: Famotidine 20 MG TAB PO SCH (19:52)
[2017-04-13] MEDS: Atorvastatin Calcium 40 MG TAB PO SCH (19:52)
[2017-04-13] MEDS: Lorazepam 2 MG/ML VIAL SLOW IVP PRN (19:52)
[2017-04-13] MEDS: Levofloxacin 750 mg/D5W 500 MG in Premix Bag 1 BAG IVPB SCH (21:22)
[2017-04-13] MEDS: Acetaminophen 325 MG TAB PO PRN (21:36)
--- NOTE | 2017-04-13 22:19 | PRG ---
DATE OF SERVICE: 04/13/2017 Mr. Darden had his trach revised. He was ventilated this morning; we turned him down to a rate of 8 . He is tachypneic really no matter what rate we have him at. I was hoping we would get him into a trach collar tomorrow, but we will probably leave him on ventilator tonight and then try moving towar ds a trach collar tomorrow. PHYSICAL EXAMINATION VITAL SIGNS: His heart rate is 100, respiratory rate is 20s-30s. Blood pressure is 107/59, low dose s of morphine do not really help much, nor does an IM dose of Haldol. LUNGS: His lungs are clear. HEART: Regular rhythm. ABDOMEN: Soft and nontender. Chest radiograph is essentially unchanged, this was reviewed by me. LABORATORY DATA White count 15.6 yesterday. There is no CBC today. Glucoses are in the 200 and 300 range. IMPRESSION: 1. Chronic respiratory failure. 2. History of cerebrovascular accident. 3. Probable aspiration pneumonia. 4. Morbid obesity with 5 feet tall and 202 pounds with a BMI of 39.6. 5. History of a massive cerebrovascular accident with left hemiplegia. 6. History of obstructive sleep apnea, obviously now treated with a tracheostomy. 7. Diabetes. 8. History of a PEG, but this is no longer in place. PLAN: As above, we will continue ventilation. Reassess him and try to decrease ventilatory support as may varela
[2017-04-14] MEDS: Cefepime 1 GM in Syringe 10 ML SLOW IVP SCH ×2 (03:23→16:00)
[2017-04-14] MEDS: HumaLOG 300 UNITS/3 ML VIAL SC PRN ×3 (04:45→22:20)
[2017-04-14] MEDS: Propofol 1,000 MG/100 ML VIAL IV PRN ×4 (04:53→22:24)
[2017-04-14 05:06] LABS: #Lymphocytes 1.1 thou/uL (1.20-3.40); #Neutrophils 14.8 thou/uL (1.40-6.50); %Basophils 0.2 % (0.0-1.0); %Eosinophils 0.3 % (0.0-10.0); %Lymphocytes 6.7 % (21.0-51.0); %Monocytes 5.9 % (0.0-10.0); Hematocrit 28.3 % (42.0-52.0); Mean Platelet Volume 7.5 fL (7.4-10.4); Red Blood Cell (RBC) Count 3.03 mill/uL (4.70-6.10); White Blood Cell (WBC) Count 17.1 thou/uL (4.8-10.8)
[2017-04-14 05:08] LABS: Anion Gap 10 mmol/L (10-20); BUN (Urea Nitrogen) 17 mg/dL (8.4-25.7); Calc. Creatinine Clearance 94 mL/min (70-130); Calcium 7.3 mg/dL (7.8-10.44); Carbon Dioxide 25 mmol/L (23-31); Chloride 118 mmol/L (98-107); Estimated GFR-MDRD 89
--- NOTE | 2017-04-14 08:14 | OP ---
DATE OF SURGERY: 04/12/2017 PREOPERATIVE DIAGNOSIS: Tracheostomy stenosis. POSTOPERATIVE DIAGNOSIS: Tracheostomy stenosis. OPERATION PERFORMED: Tracheostomy revision with resection of some calcified tracheal tissue. SURGEON: Babatunde Delacruz MD ANESTHESIA: General endotracheal. INDICATIONS: The patient is a 66-year-old black male in whom I placed a tracheostomy tube about 11 y ears previously. He had removed his tracheostomy tube recently at his retirement and by the time h e presented to the hospital, a similar size tracheostomy tube cannot be replaced. He was intubated w ith a size #7 endotracheal tube and placed on the ventilator secondary to respiratory insufficiency. Attempts at placing appropriate sized tracheostomy tube at bedside failed and I was consulted for re vision of his tracheostomy to place an additional tracheostomy tube of appropriate size. DESCRIPTION OF OPERATION: Informed consent was obtained. The patient was taken to the operating ernesto m where general endotracheal anesthesia was maintained using his endotracheal tube through the trache ostomy opening. The patient was then intubated by anesthesia with an orotracheal intubation. After was certain that the tube was passed through the cords, the endotracheal tube through the tracheostom y opening was removed and I was able to visualize the orotracheal tube through the tracheostomy openi ng. The neck was then prepped with Betadine and draped in sterile fashion. Local anesthetic was infiltra keaton using 0.25% Marcaine with epinephrine. A transverse incision was created on either side of the t racheostomy opening. There was skin extending down into the tracheostomy opening and I could not pas s a suction catheter much less my finger down into the opening. I dissected through the strictured s kin down into the tracheostomy opening. The soft tissue was divided on either side of midline using electrocautery. The tracheostomy car inspector was used to gain visualization internally. Dissection was eventually carried down onto the tracheostomy tube. I still could not pass my finger down to the op ening because of the stenosis. There was found to be thickened, hard, calcified tissue that appeared to likely be a part of the trachea. I had to excise a small piece of this on each side. At the poi nt that I could adequately visualize the anterior aspect of the trachea, a #8 [employer] Shiley tracheostomy tube was obtained. The orotracheal tube was removed under vision and at the point that it was adequ ately removed, placed the tracheostomy tube through the opening and insufflated the cuff. The ventil ator circuit was secured to the tracheostomy tube using a Karnack adapter. The tracheostomy flange wa s then secured to the skin on either side of midline using a 3-0 nylon suture. Tracheostomy dressing s and ties were placed in the usual fashion. There were no complications. Patient tolerated the pro cedure well. There was no evidence of ongoing bleeding. The patient was returned to the Intensive C are Unit, still on the ventilator, but in stable condition.
[2017-04-14] MEDS: Aspirin 81 mg Enteric Coated Tablet PO SCH (09:19)
[2017-04-14] MEDS: Atenolol 25 MG TAB PO SCH (09:20)
[2017-04-14] MEDS: Divalproex Sodium 250 MG (DR) TAB PO SCH (09:22)
[2017-04-14] MEDS: Famotidine 20 MG TAB PO SCH ×2 (09:23→20:16)
[2017-04-14] MEDS: Enoxaparin Sodium 40 MG/0.4 ML SYRINGE SC SCH (09:23)
[2017-04-14] MEDS: Insulin Detemir 100 UNITS/ML 18 UNITS in Pre-Filled Syringe 1 EACH SC SCH ×2 (09:25→20:17)
--- NOTE | 2017-04-14 09:44 | RAD ---
CHEST 1 VIEW PORTABLE: Date: 04/14/17 HISTORY: Ventilator dependent patient. FINDINGS: Comparison made to previous exam from 04/13/17. AP view of chest demonstrates nasogastric tube in place. The patient has a tracheostomy tube in place . A right jugular central line is seen with distal tip overlying the right atrium. Pulmonary vascular congestion is seen. Diffuse bilateral air space opacities seen in both lungs concerning for pulmonar y edema or bilateral pneumonia. No evidence of effusions seen. No other significant interval change i s noted. Radiographic appearance of the chest is stable. IMPRESSION: Stable AP view of chest. POS: [facility]
[2017-04-14] MEDS: Sodium Chloride 0.9% 1,000 ML IV SCH ×2 (09:49→20:22)
[2017-04-14 10:58] LABS: Oxyhemoglobin 93.2 % (94.0-97.0); Sodium 152 mmol/L (135-148)
[2017-04-14 11:09] LABS: Mechanical Tidal Volume 500 ml; Mode SIMV/PSV; Modified Allen's Test NOT DONE; Pressure Support 10 cmH2O; Vent YES
--- NOTE | 2017-04-14 13:18 | PDOC.PN ---
- Subjective Encounter Start Date: 04/14/17 Encounter Start Time: 10:40 Subjective: on vent, trach sedated - Objective MAR Reviewed: Yes Vital Signs & Weight: Vital Signs (12 hours) Temp Pulse Resp BP Pulse Ox 04/14/17 12:00 98.7 F 25 H 04/14/17 10:00 30 H 04/14/17 09:20 84 108/58 L 04/14/17 08:00 98.6 F 36 H 04/14/17 07:44 84 114/65 04/14/17 07:42 88 36 H 100 04/14/17 06:00 25 H 04/14/17 04:00 98.6 F 27 H 04/14/17 02:32 88 04/14/17 02:00 29 H Weight Admit Weight 202 lb 9.664 oz Weight 202 lb 9.664 oz Most Recent Monitor Data Heart Rate from ECG 81 NIBP 94/53 NIBP BP-Mean 70 Respiration from ECG 23 SpO2 100 I&O: 04/13/17 04/14/17 04/15/17 06:59 06:59 06:59 Intake Total 2819 1932 0 Output Total 1989 1805 280 Balance 829 127 -280 Result Diagrams: 04/14/17 04:30 04/14/17 04:30 Additional Labs: Accuchecks 04/14/17 04/14/17 04/13/17 12:17 04:31 23:16 POC Glucose 162 H 161 H 224 H 04/13/17 16:15 POC Glucose 217 H Phys Exam - Physical Examination HEENT: PERRLA, sclera anicteric Neck: no JVD trach+ Respiratory: no wheezing, no rales Cardiovascular: RRR, no significant murmur Gastrointestinal: soft, non-tender, positive bowel sounds Musculoskeletal: no edema, pulses present Neurological: non-focal, moves all 4 limbs Dx/Plan (1) Acute respiratory failure with hypoxemia Code(s): J96.01 - ACUTE RESPIRATORY FAILURE WITH HYPOXIA Status: Acute Comment: had revision of his trach (2) NSTEMI (non-ST elevated myocardial infarction) Code(s): I21.4 - NON-ST ELEVATION (NSTEMI) MYOCARDIAL INFARCTION Status: Acute (3) Pneumonia Code(s): J18.9 - PNEUMONIA, UNSPECIFIED ORGANISM Status: Acute Qualifiers: Pneumonia type: aspiration pneumonia Aspiration pneumonia type: due to regurgitated food (4) Sepsis Code(s): A41.9 - SEPSIS, UNSPECIFIED ORGANISM Status: Acute Qualifiers: Sepsis type: sepsis due to unspecified organism Qualified Code(s): A41.9 - Sepsis, unspecified organism (5) Dyslipidemia Code(s): E78.5 - HYPERLIPIDEMIA, UNSPECIFIED Status: Chronic (6) GERD (gastroesophageal reflux disease) Code(s): K21.9 - GASTRO-ESOPHAGEAL REFLUX DISEASE WITHOUT ESOPHAGITIS Status: Chronic Qualifiers: Esophagitis presence: esophagitis presence not specified Qualified Code(s) : K21.9 - Gastro-esophageal reflux disease without esophagitis (7) Obesity (BMI 30.0-34.9) Code(s): E66.9 - OBESITY, UNSPECIFIED Status: Chronic (8) CVA, old, aphasia Code(s): I69.320 - APHASIA FOLLOWING CEREBRAL INFARCTION Status: Chronic (9) Diabetes mellitus type 2 in obese Code(s): E11.69 - TYPE 2 DIABETES MELLITUS WITH OTHER SPECIFIED COMPLICATION; E66.9 - OBESITY, UNSPECIFIED Status: Chronic - Plan suggest peg for nutrition -: weaning per pulm advice -: is on cefipime and levaquin, may switch to omnicef(cultures -ve) -: may switch to oral steroids -: sbp holding up, urine is high colored , is on 100mls/hr NS * . Review of Systems - Medications/Allergies Allergies/Adverse Reactions: Allergies Allergy/AdvReac Type Severity Reaction Status Date / Time No Known Drug Allergies Allergy Verified 03/17/16 05:25 Medications: Current Medications Acetaminophen (Tylenol) 650 mg [place] Q4H PRN PRN Reason: Headache/Fever or Pain Last Admin: 04/11/17 02:31 Dose: 650 mg Acetaminophen (Tylenol) 650 mg PO Q4H PRN PRN Reason: Headache/Fever or Pain Last Admin: 04/13/17 21:36 Dose: 650 mg Albuterol/Ipratropium (Duoneb) 3 ml NEB [id number] [facility] Last Admin: 04/14/17 07:42 Dose: 3 ml Aspirin (Ecotrin) 81 mg PO DAILY FLEX Last Admin: 04/14/17 09:19 Dose: 81 mg Atenolol (Tenormin) 25 mg PO DAILY [facility] Last Admin: 04/14/17 09:20 Dose: 25 mg Atorvastatin Calcium (Lipitor) 40 mg PO HS [facility] Last Admin: 04/13/17 19:52 Dose: 40 mg Dextrose/Water (Dextrose 50%) 25 gm SLOW IVP PRN PRN PRN Reason: Hypoglycemia Divalproex Sodium (Depakote) 750 mg PO QAM [facility] Last Admin: 04/14/17 09:22 Dose: 750 mg Enoxaparin Sodium (Lovenox) 40 mg SC 0900 [facility] Last Admin: 04/14/17 09:23 Dose: 40 mg Famotidine (Pepcid) 20 mg PO Q12HR [facility] Last Admin: 04/14/17 09:23 Dose: 20 mg Glucagon (Glucagon) 1 mg IM PRN PRN PRN Reason: Hypoglycemia Cefepime HCl 1 gm/ Syringe 10 mls @ 120 mls/hr SLOW IVP 0300,1500 [facility] Last Admin: 04/14/17 03:23 Dose: 10 mls Levofloxacin 500 mg/ Device 100 mls @ 100 mls/hr IVPB Q24HR [facility] Last Admin: 04/13/17 21:22 Dose: 100 mls Norepinephrine Bitartrate (Levophed) 250 mls @ 0 mls/hr IVPB INF [facility]; Titrate PRN Reason: Protocol Last Admin: 04/11/17 14:54 Dose: 250 mls Sodium Chloride (Normal Saline 0.9%) 1,000 mls @ 100 mls/hr IV .Q10H [facility] Last Admin: 04/14/17 09:49 Dose: 1,000 mls Fentanyl (Fentanyl Cadd) 250 mls @ 0 mls/hr IVPB INF [facility]; Titrate PRN Reason: Protocol Stop: 05/11/17 00:34 Fentanyl Citrate (Fentanyl Bolus) 250 mls @ 0 mls/hr IVPB PRN PRN; As Directed PRN Reason: Breakthrough pain Stop: 05/11/17 00:34 Potassium Chloride 40 meq/ (Sodium Chloride) 270 mls @ 135 mls/hr IVPB ASDIR PRN PRN Reason: FOR SERUM K+ 2.5 - 3.5 Potassium Chloride 40 meq/ (Device) 100 mls @ 50 mls/hr IVPB ASDIR PRN PRN Reason: FOR SERUM K+ 2.5 - 3.5 Last Admin: 04/12/17 06:12 Dose: 100 mls Magnesium Sulfate 1 gm/ Sodium (Chloride) 102 mls @ 102 mls/hr IV PRN PRN PRN Reason: MAG LEVEL 1.4 - 2.0 Magnesium Sulfate 2 gm/ Device 100 mls @ 100 mls/hr IVPB ASDIR PRN PRN Reason: MAGNESIUM < 1.4 Potassium Phosphate 9 mmol/ (Sodium Chloride) 103 mls @ 25.75 mls/hr IVPB ASDIR PRN PRN Reason: Phosphate 1.0-1.8 Potassium Phosphate 12 mmol/ (Sodium Chloride) 254 mls @ 63.5 mls/hr IV ASDIR PRN PRN Reason: Serum phosphate 0.5-0.9 Potassium Phosphate 15 mmol/ (Sodium Chloride) 255 mls @ 63.75 mls/hr IV ASDIR PRN PRN Reason: Serum Phos < 0.5 Dextrose/Water (D5w) 1,000 mls @ 0 mls/hr IV .Q0M PRN; As Directed PRN Reason: Hypoglycemia Insulin Detemir 18 units/ (Miscellaneous Medication) 0.18 mls @ 0 mls/hr SC BID [facility] Last Admin: 04/14/17 09:25 Dose: 0.18 mls Insulin Human Lispro (Humalog) 0 units SC .AGGRESSIVE SLIDING PRN; Protocol PRN Reason: AGGRESSIVE SLIDING SCALE Last Admin: 04/14/17 12:22 Dose: 3 unit Lorazepam (Ativan) 2 mg SLOW IVP Q2H PRN PRN Reason: Anxiety to achieve Ulrich 2-3 Stop: 05/11/17 00:34 Last Admin: 04/13/17 19:52 Dose: 2 mg Magnesium Oxide (Magnesium Oxide) 400 mg PO BIDPRN PRN PRN Reason: FOR SERUM MAG 1.4 - 2.0 Magnesium Oxide (Magnesium Oxide) 800 mg PO PRN PRN PRN Reason: FOR SERUM MAG < 1.4 Methylprednisolone Sodium Succinate (Solu-Medrol) 20 mg IVP Q8HR [facility] Last Admin: 04/14/17 05:52 Dose: 20 mg Miscellaneous Medication (Phos-Nak) 1 pkt PO TIDPRN PRN PRN Reason: FOR PHOS LEVEL 1.0 - 1.8 Miscellaneous Medication (Phos-Nak) 2 pkt PO TIDPRN PRN PRN Reason: FOR PHOS LEVEL 0.5 - 1.0 Morphine Sulfate (Morphine) 2 mg SLOW IVP Q2H PRN PRN Reason: .BREAKTHROUGH PAIN Last Admin: 04/13/17 23:27 Dose: 2 mg Discontinue Previous Narcotic Pain Medications And Benzodiazepines 1 each FS .ONE FLEX Stop: 05/11/17 00:34 Ccu Electrolyte (Replacement Protocol) 0 each FS PRN PRN PRN Reason: FOR ELECTROLYTE REPLACEMENT Ondansetron HCl (Zofran) 4 mg IVP Q6H PRN PRN Reason: Nausea/Vomiting Phenytoin Sodium (Dilantin) 200 mg PO HS [facility] Last Admin: 04/13/17 21:21 Dose: 200 mg Potassium Chloride (K-Dur) 40 meq PO ASDIR PRN PRN Reason: FOR SERUM K+ 2.5 - 3.5 Potassium Chloride (Klor-Con) 40 meq PER TUBE ASDIR PRN PRN Reason: FOR SERUM K+ 2.5-3.5 Propofol (Diprivan) 1,000 mg IV INF PRN; Protocol PRN Reason: TO ACHIEVE ULRICH SCORE 2-3 Stop: 05/11/17 00:34 Last Admin: 04/14/17 12:21 Dose: 1,000 mg Sodium Chloride (Flush - Normal Saline) 10 ml IVF Q12HR [facility] Last Admin: 04/14/17 09:24 Dose: 10 ml Sodium Chloride (Flush - Normal Saline) 10 ml IVF PRN PRN PRN Reason: Saline Flush
[2017-04-14] MEDS ORDERED: Pancrelipase DR 12000 1 CAP FS PRN (18:21)
[2017-04-14] MEDS ORDERED: Sodium Bicarbonate Tab 325 MG TAB PER TUBE PRN (18:21)
[2017-04-14] MEDS: Lorazepam 2 MG/ML VIAL SLOW IVP PRN (20:16)
[2017-04-14] MEDS: Atorvastatin Calcium 40 MG TAB PO SCH (20:16)
[2017-04-14] MEDS: Levofloxacin 750 mg/D5W 500 MG in Premix Bag 1 BAG IVPB SCH (21:42)
--- NOTE | 2017-04-14 22:04 | PRG ---
DATE OF SERVICE: 04/14/2017 Delio Darden remains responsive. He is sedated for ventilation. When he is not sedated, he gets extremely tachypneic. His ventilator rate still set at 80. He was tried on basically a spontaneous breathing trial later t laura and respiratory rate kicked up into the 40s. OBJECTIVE: VITAL SIGNS: Blood pressure 102/53, respiratory rate is in 30s to 20s when he is sedated. Intake and output is positive 127 mL. LUNGS: Distant, clear anteriorly. HEART: Regular rhythm. ABDOMEN: Soft. EXTREMITIES: Without asymmetry. LABORATORY DATA: White count 17.1, hemoglobin 9.5, platelets 161,000. Sodium 149, potassium 3.7, chloride 118, bicarb 25, BUN 70, creatinine 1.02, glucose is between 139 a nd 224 today. Chest radiograph shows an increase in interstitial markings and bibasilar infiltrates suggestive of edema. IMPRESSION: 1. Respiratory failure. 2. Obesity. 3. Status post tracheostomy requiring a revision. 4. History of cerebrovascular accident. 5. Probable aspiration pneumonia. 6. Morbid obesity. 7. History of diabetes. 8. History of PEG, but this is no longer in place. PLAN: Continue slow weaning attempts from mechanical ventilation. Continue blood pressure medicines . Continue broad spectrum antimicrobial therapy. Continue sedation and insulin. We will continue with steroids. We will slowly wean him hopefully as tolerated. Critical care time 30 minutes.
[2017-04-15] MEDS: Cefepime 1 GM in Syringe 10 ML SLOW IVP SCH ×2 (02:33→14:32)
[2017-04-15] MEDS: Lorazepam 2 MG/ML VIAL SLOW IVP PRN ×2 (03:07→22:28)
[2017-04-15] MEDS: Propofol 1,000 MG/100 ML VIAL IV PRN ×4 (03:07→20:31)
[2017-04-15 04:50] LABS: PTT 36.2 SEC (22.9-36.1)
[2017-04-15 05:12] LABS: Band 3 % (5-11); Hematocrit 24.3 % (42.0-52.0); Neutrophil 73 % (42-75); Nucleated RBC 1 % (0); Red Blood Cell (RBC) Count 2.57 mill/uL (4.70-6.10); White Blood Cell (WBC) Count 8.6 thou/uL (4.8-10.8)
[2017-04-15 05:15] LABS: Anion Gap 10 mmol/L (10-20); BUN (Urea Nitrogen) 20 mg/dL (8.4-25.7); Calc. Creatinine Clearance 98 mL/min (70-130); Calcium 6.8 mg/dL (7.8-10.44); Carbon Dioxide 24 mmol/L (23-31); Chloride 119 mmol/L (98-107); Estimated GFR-MDRD Greater than 90
[2017-04-15] MEDS: HumaLOG 300 UNITS/3 ML VIAL SC PRN ×3 (06:16→18:43)
[2017-04-15] MEDS: Sodium Chloride 0.9% 1,000 ML IV SCH ×2 (06:27→09:59)
[2017-04-15 07:14] LABS: Oxyhemoglobin 94.7 % (94.0-97.0); Sodium 152 mmol/L (135-148)
[2017-04-15 07:16] LABS: Mechanical Tidal Volume 500 ml; Modified Allen's Test NOT DONE; Vent YES
[2017-04-15 07:17] LABS: Mode SIMV/PSV; Pressure Support 10 cmH2O
[2017-04-15] MEDS: Famotidine 20 MG TAB PO SCH ×2 (08:32→22:32)
[2017-04-15] MEDS: Aspirin 81 mg Enteric Coated Tablet PO SCH (08:34)
[2017-04-15] MEDS: Divalproex Sodium 250 MG (DR) TAB PO SCH (08:34)
[2017-04-15] MEDS: Enoxaparin Sodium 40 MG/0.4 ML SYRINGE SC SCH (08:35)
[2017-04-15] MEDS: Atenolol 25 MG TAB PO SCH (08:48)
[2017-04-15] MEDS ORDERED: Furosemide 40 MG/4 ML VIAL IVP SCH (08:52)
[2017-04-15] MEDS ORDERED: Magnesium Sulfate 3 GM in Sodium Chloride 0.9% 100 ML IVPB SCH (09:00)
[2017-04-15] MEDS: Insulin Detemir 100 UNITS/ML 18 UNITS in Pre-Filled Syringe 1 EACH SC SCH ×2 (09:37→22:30)
--- NOTE | 2017-04-15 10:18 | RAD ---
AP VIEW CHEST: Date: 04/15/17 INDICATION: Ventilator dependent patient. FINDINGS: Comparison made to previous exam from 04/14/17. AP view of chest demonstrates nasogastric tube in place. A tracheostomy tube is in place. A right jug ular central line is present. Bilateral perihilar and lung parenchymal air space opacities seen concerning for possible pneumonia o r pulmonary edema. IMPRESSION: Stable AP view of chest not significantly changed since the previous exam. POS: [facility]
--- NOTE | 2017-04-15 11:17 | PDOC.PN ---
- Subjective Encounter Start Date: 04/15/17 Encounter Start Time: 09:40 Subjective: on vent sedated -: opens eyes to stimulation, not oriented - Objective MAR Reviewed: Yes Vital Signs & Weight: Vital Signs (12 hours) Temp Pulse Resp BP Pulse Ox 04/15/17 10:00 44 H 04/15/17 08:48 90 119/52 L 04/15/17 08:00 99.1 F 88 31 H 98 04/15/17 06:59 94 127/73 04/15/17 06:56 97 48 H 99 04/15/17 06:00 34 H 04/15/17 04:00 99 F 34 H 04/15/17 01:55 91 115/57 L 04/15/17 00:14 91 39 H 98 04/15/17 00:00 100.2 F H Weight Admit Weight 202 lb 9.664 oz Weight 202 lb 9.664 oz Most Recent Monitor Data Heart Rate from ECG 93 NIBP 123/50 NIBP BP-Mean 90 Respiration from ECG 26 SpO2 100 I&O: 04/14/17 04/15/17 04/16/17 06:59 06:59 06:59 Intake Total 1932 3171 371 Output Total 1805 2025 590 Balance 127 1146 -219 Result Diagrams: 04/15/17 04:00 04/15/17 04:00 Additional Labs: Accuchecks 04/14/17 04/14/17 04/14/17 22:19 17:56 12:17 POC Glucose 169 H 139 H 162 H Phys Exam - Physical Examination HEENT: PERRLA, sclera anicteric Neck: no JVD trach+ Respiratory: no wheezing, no rales Cardiovascular: RRR, no significant murmur Gastrointestinal: soft, non-tender, no distention, positive bowel sounds Musculoskeletal: no edema, pulses present left hemiplegia Dx/Plan (1) Acute respiratory failure with hypoxemia Code(s): J96.01 - ACUTE RESPIRATORY FAILURE WITH HYPOXIA Status: Acute Comment: had revision of his trach (2) NSTEMI (non-ST elevated myocardial infarction) Code(s): I21.4 - NON-ST ELEVATION (NSTEMI) MYOCARDIAL INFARCTION Status: Acute (3) Pneumonia Code(s): J18.9 - PNEUMONIA, UNSPECIFIED ORGANISM Status: Acute Qualifiers: Pneumonia type: aspiration pneumonia Aspiration pneumonia type: due to regurgitated food (4) Sepsis Code(s): A41.9 - SEPSIS, UNSPECIFIED ORGANISM Status: Acute Qualifiers: Sepsis type: sepsis due to unspecified organism Qualified Code(s): A41.9 - Sepsis, unspecified organism (5) Dyslipidemia Code(s): E78.5 - HYPERLIPIDEMIA, UNSPECIFIED Status: Chronic (6) GERD (gastroesophageal reflux disease) Code(s): K21.9 - GASTRO-ESOPHAGEAL REFLUX DISEASE WITHOUT ESOPHAGITIS Status: Chronic Qualifiers: Esophagitis presence: esophagitis presence not specified Qualified Code(s) : K21.9 - Gastro-esophageal reflux disease without esophagitis (7) Obesity (BMI 30.0-34.9) Code(s): E66.9 - OBESITY, UNSPECIFIED Status: Chronic (8) CVA, old, aphasia Code(s): I69.320 - APHASIA FOLLOWING CEREBRAL INFARCTION Status: Chronic Comment: left hemiplegia, with wasting of LE, foot drop b/l (9) Diabetes mellitus type 2 in obese Code(s): E11.69 - TYPE 2 DIABETES MELLITUS WITH OTHER SPECIFIED COMPLICATION; E66.9 - OBESITY, UNSPECIFIED Status: Chronic - Plan on cefipime and levaquin -: getting ng feeding -: will likely need peg on sunday by -: iv steroids, weaning as tolerated -: Hb holding up around 7g, watch for sod and urine output * . Review of Systems - Medications/Allergies Allergies/Adverse Reactions: Allergies Allergy/AdvReac Type Severity Reaction Status Date / Time No Known Drug Allergies Allergy Verified 03/17/16 05:25 Medications: Current Medications Acetaminophen (Tylenol) 650 mg [place] Q4H PRN PRN Reason: Headache/Fever or Pain Last Admin: 04/11/17 02:31 Dose: 650 mg Acetaminophen (Tylenol) 650 mg PO Q4H PRN PRN Reason: Headache/Fever or Pain Last Admin: 04/13/17 21:36 Dose: 650 mg Albuterol/Ipratropium (Duoneb) 3 ml NEB [id number] [facility] Lipase/Protease/Amylase ([place] [id number]) 1 cap FS .PER PROTOCOL PRN PRN Reason: TUBE OCCLUSION PROTOCOL Aspirin (Ecotrin) 81 mg PO DAILY [facility] Last Admin: 04/15/17 08:34 Dose: 81 mg Atenolol (Tenormin) 25 mg PO DAILY [facility] Last Admin: 04/15/17 08:48 Dose: 25 mg Atorvastatin Calcium (Lipitor) 40 mg PO HS [facility] Last Admin: 04/14/17 20:16 Dose: 40 mg Dextrose/Water (Dextrose 50%) 25 gm SLOW IVP PRN PRN PRN Reason: Hypoglycemia Divalproex Sodium (Depakote) 750 mg PO QAM [facility] Last Admin: 04/15/17 08:34 Dose: 750 mg Enoxaparin Sodium (Lovenox) 40 mg SC 0900 [facility] Last Admin: 04/15/17 08:35 Dose: 40 mg Famotidine (Pepcid) 20 mg PO Q12HR [facility] Last Admin: 04/15/17 08:32 Dose: 20 mg Furosemide (Lasix) 60 mg IVP NOW [facility] Stop: 04/15/17 12:00 Last Admin: 04/15/17 09:58 Dose: 60 mg Glucagon (Glucagon) 1 mg IM PRN PRN PRN Reason: Hypoglycemia Cefepime HCl 1 gm/ Syringe 10 mls @ 120 mls/hr SLOW IVP 0300,1500 [facility] Last Admin: 04/15/17 02:33 Dose: 10 mls Levofloxacin 500 mg/ Device 100 mls @ 100 mls/hr IVPB Q24HR [facility] Last Admin: 04/14/17 21:42 Dose: 100 mls Norepinephrine Bitartrate (Levophed) 250 mls @ 0 mls/hr IVPB INF FLEX; Titrate PRN Reason: Protocol Last Admin: 04/11/17 14:54 Dose: 250 mls Fentanyl (Fentanyl Cadd) 250 mls @ 0 mls/hr IVPB INF [facility]; Titrate PRN Reason: Protocol Stop: 05/11/17 00:34 Fentanyl Citrate (Fentanyl Bolus) 250 mls @ 0 mls/hr IVPB PRN PRN; As Directed PRN Reason: Breakthrough pain Stop: 05/11/17 00:34 Potassium Chloride 40 meq/ (Sodium Chloride) 270 mls @ 135 mls/hr IVPB ASDIR PRN PRN Reason: FOR SERUM K+ 2.5 - 3.5 Potassium Chloride 40 meq/ (Device) 100 mls @ 50 mls/hr IVPB ASDIR PRN PRN Reason: FOR SERUM K+ 2.5 - 3.5 Last Admin: 04/12/17 06:12 Dose: 100 mls Magnesium Sulfate 1 gm/ Sodium (Chloride) 102 mls @ 102 mls/hr IV PRN PRN PRN Reason: MAG LEVEL 1.4 - 2.0 Magnesium Sulfate 2 gm/ Device 100 mls @ 100 mls/hr IVPB ASDIR PRN PRN Reason: MAGNESIUM < 1.4 Potassium Phosphate 9 mmol/ (Sodium Chloride) 103 mls @ 25.75 mls/hr IVPB ASDIR PRN PRN Reason: Phosphate 1.0-1.8 Potassium Phosphate 12 mmol/ (Sodium Chloride) 254 mls @ 63.5 mls/hr IV ASDIR PRN PRN Reason: Serum phosphate 0.5-0.9 Potassium Phosphate 15 mmol/ (Sodium Chloride) 255 mls @ 63.75 mls/hr IV ASDIR PRN PRN Reason: Serum Phos < 0.5 Dextrose/Water (D5w) 1,000 mls @ 0 mls/hr IV .Q0M PRN; As Directed PRN Reason: Hypoglycemia Insulin Detemir 18 units/ (Miscellaneous Medication) 0.18 mls @ 0 mls/hr SC BID [facility] Last Admin: 04/15/17 09:37 Dose: 0.18 mls Magnesium Sulfate 3 gm/ Sodium (Chloride) 106 mls @ 100 mls/hr IVPB NOW [facility] Stop: 04/15/17 12:00 Last Admin: 04/15/17 10:35 Dose: 106 mls Sodium Chloride (Normal Saline 0.9%) 1,000 mls @ 50 mls/hr IV .Q20H [facility] Last Admin: 04/15/17 09:59 Dose: 1,000 mls Insulin Human Lispro (Humalog) 0 units SC .AGGRESSIVE SLIDING PRN; Protocol PRN Reason: AGGRESSIVE SLIDING SCALE Last Admin: 04/15/17 10:05 Dose: 6 unit Lorazepam (Ativan) 2 mg SLOW IVP Q2H PRN PRN Reason: Anxiety to achieve Ulrich 2-3 Stop: 05/11/17 00:34 Last Admin: 04/15/17 03:07 Dose: 2 mg Magnesium Oxide (Magnesium Oxide) 400 mg PO BIDPRN PRN PRN Reason: FOR SERUM MAG 1.4 - 2.0 Magnesium Oxide (Magnesium Oxide) 800 mg PO PRN PRN PRN Reason: FOR SERUM MAG < 1.4 Methylprednisolone Sodium Succinate (Solu-Medrol) 20 mg IVP Q8HR [facility] Last Admin: 04/15/17 06:15 Dose: 20 mg Miscellaneous Medication (Phos-Nak) 1 pkt PO TIDPRN PRN PRN Reason: FOR PHOS LEVEL 1.0 - 1.8 Miscellaneous Medication (Phos-Nak) 2 pkt PO TIDPRN PRN PRN Reason: FOR PHOS LEVEL 0.5 - 1.0 Morphine Sulfate (Morphine) 2 mg SLOW IVP Q2H PRN PRN Reason: .BREAKTHROUGH PAIN Last Admin: 04/13/17 23:27 Dose: 2 mg Discontinue Previous Narcotic Pain Medications And Benzodiazepines 1 each FS .ONE [facility] Stop: 05/11/17 00:34 Ccu Electrolyte (Replacement Protocol) 0 each FS PRN PRN PRN Reason: FOR ELECTROLYTE REPLACEMENT Ondansetron HCl (Zofran) 4 mg IVP Q6H PRN PRN Reason: Nausea/Vomiting Phenytoin Sodium (Dilantin) 200 mg PO HS [facility] Last Admin: 04/14/17 20:16 Dose: 200 mg Potassium Chloride (K-Dur) 40 meq PO ASDIR PRN PRN Reason: FOR SERUM K+ 2.5 - 3.5 Potassium Chloride (Klor-Con) 40 meq PER TUBE ASDIR PRN PRN Reason: FOR SERUM K+ 2.5-3.5 Propofol (Diprivan) 1,000 mg IV INF PRN; Protocol PRN Reason: TO ACHIEVE ULRICH SCORE 2-3 Stop: 05/11/17 00:34 Last Admin: 04/15/17 09:37 Dose: 1,000 mg Sodium Bicarbonate (Bicarbonate, Sodium) 650 mg PER TUBE .PER PROTOCOL PRN PRN Reason: ENTERAL TUBE OCCLUSION Sodium Chloride (Flush - Normal Saline) 10 ml IVF Q12HR [facility] Last Admin: 04/15/17 08:35 Dose: 10 ml Sodium Chloride (Flush - Normal Saline) 10 ml IVF PRN PRN PRN Reason: Saline Flush
[2017-04-15] MEDS: Levofloxacin 750 mg/D5W 500 MG in Premix Bag 1 BAG IVPB SCH (22:31)
[2017-04-15] MEDS: Atorvastatin Calcium 40 MG TAB PO SCH (22:32)
--- NOTE | 2017-04-15 22:32 | PRG ---
DATE OF SERVICE: 04/15/2017 SUBJECTIVE: Mr. Darden still is not weanable from a mechanical ventilation with his tracheostomy af ter revision of his trach. OBJECTIVE: VITAL SIGNS: Blood pressure 127/48, heart rate is 96, respiratory rate is 28. Oximetry is 99. LUNGS: Remarkable for distant breath sounds. CARDIOVASCULAR: Regular rhythm. ABDOMEN: Soft. LABORATORY DATA: White count 8.6, hemoglobin 7.7, platelets 153. Sodium 149, potassium 3.6, chloride 119, bicarb 24, BUN 20, creatinine 0.98, glucose 366, pH 7.34, pC O2 of 48, pO2 of 107. ProTime is 15, PTT is 36. Chest radiographs still shows bilateral alveolar infiltrates. IMPRESSION: 1. Respiratory failure. 2. Life threatening obesity. 3. Status post revision of his tracheostomy. 4. ? Component of pneumonia. 5. Bronchospasm. 6. History of aspiration. 7. ? Component of pulmonary edema. 8. History of the cerebrovascular accident. PLAN: 1. Trial of diuresis with a repeat radiographs in the morning. 2. Given his nebulized treatments every 4 hours and add an magnesium 3 grams today to see if this im proves, least improvement is bronchospasm. He was given 60 mg of Lasix. I expect he will require very slow decreases in ventilatory support over this next week. Critical care time 30 minutes.
[2017-04-16] MEDS: Propofol 1,000 MG/100 ML VIAL IV PRN ×3 (02:53→13:25)
[2017-04-16] MEDS: Sodium Chloride 0.9% 1,000 ML IV SCH ×2 (02:53→16:50)
[2017-04-16] MEDS: Cefepime 1 GM in Syringe 10 ML SLOW IVP SCH ×2 (02:55→14:14)
[2017-04-16] MEDS: Lorazepam 2 MG/ML VIAL SLOW IVP PRN (04:08)
[2017-04-16 04:44] LABS: Anion Gap 11 mmol/L (10-20); BUN (Urea Nitrogen) 19 mg/dL (8.4-25.7); Calc. Creatinine Clearance 85 mL/min (70-130); Calcium 7.5 mg/dL (7.8-10.44); Carbon Dioxide 30 mmol/L (23-31); Chloride 114 mmol/L (98-107); Estimated GFR-MDRD 80
[2017-04-16] MEDS: HumaLOG 300 UNITS/3 ML VIAL SC PRN ×3 (05:18→15:08)
[2017-04-16] MEDS: Potassium Chloride 40 MEQ in Premix Bag 1 BAG IVPB PRN (05:57)
[2017-04-16 07:58] LABS: Oxyhemoglobin 94.9 % (94.0-97.0); Sodium 153 mmol/L (135-148)
[2017-04-16 08:07] LABS: Modified Allen's Test NOT DONE; Vent YES
[2017-04-16 08:08] LABS: Mechanical Tidal Volume 500 ml; Mode SIMV/PSV; Pressure Support 10 cmH2O
--- NOTE | 2017-04-16 09:50 | PRG ---
DATE OF SERVICE: 04/16/2017 Thirty-five minutes critical care time. The patient remains on mechanical ventilation through a tracheostomy. He has not made much progress with weaning. He will not wake up and interact with me. PHYSICAL EXAMINATION: VITAL SIGNS: Temperature is 98.9, pulse 104, blood pressure 137/70, 24-hour intake is 3361, output 5 040. HEENT: Pupils react, sclera anicteric. Oropharynx clear. NECK: Tracheostomy with secretions around the side. LUNGS: Clear anteriorly. CARDIOVASCULAR: S1, S2 regular without murmur. ABDOMEN: Soft, obese, nontender, nondistended. EXTREMITIES: No edema. His chest x-ray shows clear lung gannon, tracheostomy in good position. LABORATORY DATA: White blood cell count 8.6, hemoglobin 7.7, hematocrit 24.3, platelet count 153. S odium 152, potassium 3.0, chloride 114, CO2 30, BUN 19, creatinine 1.1, glucose 264, calcium 7.5, pH 7.36, PCO2 52, PO2 is 97 on SIMV rate 8, tidal volume 500, PEEP 5, pressure support 10, FiO2 35%. ASSESSMENT: 1. Acute respiratory failure requiring mechanical ventilation. 2. History of chronic respiratory failure requiring tracheostomy placement. 3. Possible pneumonia. 4. Obesity. 5. History of cerebrovascular accident. PLAN: 1. Try spontaneous breathing trials with high pressure support. 2. Replace potassium. 3. Hypernatremia is probably due to diuresis yesterday. For the time being, we will hold further di uresis and just follow his sodium. 4. Continue steroids and nebulization treatments.
[2017-04-16] MEDS: Aspirin 81 mg Enteric Coated Tablet PO SCH (10:22)
[2017-04-16] MEDS: Famotidine 20 MG TAB PO SCH ×2 (10:22→23:10)
[2017-04-16] MEDS: Insulin Detemir 100 UNITS/ML 25 UNITS in Pre-Filled Syringe 1 EACH SC SCH ×2 (10:22→23:07)
[2017-04-16] MEDS: Divalproex Sodium 250 MG (DR) TAB PO SCH (10:23)
[2017-04-16] MEDS: Enoxaparin Sodium 40 MG/0.4 ML SYRINGE SC SCH (10:23)
[2017-04-16] MEDS: Atenolol 25 MG TAB PO SCH (10:23)
--- NOTE | 2017-04-16 10:25 | RAD ---
AP VIEW CHEST: Date: 04/16/17 HISTORY: Ventilator dependent patient. FINDINGS: Comparison made to previous exam from 04/15/17. AP view of chest demonstrates nasogastric tube, as well as tracheostomy tube to be in place. Right ju gular central line is seen. Mild cardiomegaly and pulmonary vascular congestion is seen. No evidence of effusions seen. Radiographic appearance of the chest is stable. IMPRESSION: Stable AP view chest. POS: [facility]
--- NOTE | 2017-04-16 10:32 | PDOC.PN ---
- Subjective Encounter Start Date: 04/16/17 Encounter Start Time: 09:40 Subjective: lethargic, barely opens eyes to stimuli -: on vent, trach - Objective MAR Reviewed: Yes Vital Signs & Weight: Vital Signs (12 hours) Temp Pulse Resp BP Pulse Ox 04/16/17 10:23 104 H 04/16/17 10:00 36 H 04/16/17 09:10 104 H 42 H 97 04/16/17 08:00 98.9 F 97 26 H 04/16/17 07:47 97 98/54 L 04/16/17 06:00 98.9 F 15 04/16/17 04:00 15 04/16/17 02:30 84 107/54 L 04/16/17 02:29 84 8 L 100 04/16/17 02:00 11 L 04/16/17 00:00 13 Weight Admit Weight 202 lb 9.664 oz Weight 202 lb 9.664 oz Most Recent Monitor Data Heart Rate from ECG 113 NIBP 124/51 NIBP BP-Mean 110 Respiration from ECG 38 SpO2 100 I&O: 04/15/17 04/16/17 04/17/17 06:59 06:59 06:59 Intake Total 3171 3361 Output Total 2025 5040 330 Balance 1146 -1679 -330 Result Diagrams: 04/15/17 04:00 04/16/17 03:50 Additional Labs: Accuchecks 04/16/17 04/16/17 04/16/17 09:31 05:13 00:05 POC Glucose 239 H 270 H 244 H 04/15/17 04/15/17 18:33 10:05 POC Glucose 303 H 243 H Phys Exam - Physical Examination HEENT: PERRLA, sclera anicteric Neck: no JVD trach+ Respiratory: no wheezing, no rales rhonchi++ Cardiovascular: RRR, no significant murmur Gastrointestinal: soft, non-tender, positive bowel sounds Musculoskeletal: pulses present, edema present Neurological: non-focal left hemiplegia, both LE wasting with foot drop Dx/Plan (1) Acute respiratory failure with hypoxemia Code(s): J96.01 - ACUTE RESPIRATORY FAILURE WITH HYPOXIA Status: Acute Comment: had revision of his trach (2) NSTEMI (non-ST elevated myocardial infarction) Code(s): I21.4 - NON-ST ELEVATION (NSTEMI) MYOCARDIAL INFARCTION Status: Acute (3) Pneumonia Code(s): J18.9 - PNEUMONIA, UNSPECIFIED ORGANISM Status: Acute Qualifiers: Pneumonia type: aspiration pneumonia Aspiration pneumonia type: due to regurgitated food (4) Sepsis Code(s): A41.9 - SEPSIS, UNSPECIFIED ORGANISM Status: Acute Qualifiers: Sepsis type: sepsis due to unspecified organism Qualified Code(s): A41.9 - Sepsis, unspecified organism (5) Dyslipidemia Code(s): E78.5 - HYPERLIPIDEMIA, UNSPECIFIED Status: Chronic (6) GERD (gastroesophageal reflux disease) Code(s): K21.9 - GASTRO-ESOPHAGEAL REFLUX DISEASE WITHOUT ESOPHAGITIS Status: Chronic Qualifiers: Esophagitis presence: esophagitis presence not specified Qualified Code(s) : K21.9 - Gastro-esophageal reflux disease without esophagitis (7) Obesity (BMI 30.0-34.9) Code(s): E66.9 - OBESITY, UNSPECIFIED Status: Chronic (8) CVA, old, aphasia Code(s): I69.320 - APHASIA FOLLOWING CEREBRAL INFARCTION Status: Chronic Comment: left hemiplegia, with wasting of LE, foot drop b/l (9) Diabetes mellitus type 2 in obese Code(s): E11.69 - TYPE 2 DIABETES MELLITUS WITH OTHER SPECIFIED COMPLICATION; E66.9 - OBESITY, UNSPECIFIED Status: Chronic - Plan weaning per pulm advice -: will likely need peg -: is on cefipime, levaq and solumedrol -: ng feeding, gentle iv hydration -: watch for electrolytes, [place].output [place] 5040ml last 24hrs * . Review of Systems - Medications/Allergies Allergies/Adverse Reactions: Allergies Allergy/AdvReac Type Severity Reaction Status Date / Time No Known Drug Allergies Allergy Verified 03/17/16 05:25 Medications: Current Medications Acetaminophen (Tylenol) 650 mg [place] Q4H PRN PRN Reason: Headache/Fever or Pain Last Admin: 04/11/17 02:31 Dose: 650 mg Acetaminophen (Tylenol) 650 mg PO Q4H PRN PRN Reason: Headache/Fever or Pain Last Admin: 04/13/17 21:36 Dose: 650 mg Albuterol/Ipratropium (Duoneb) 3 ml NEB [id number] FLEX Last Admin: 04/16/17 09:10 Dose: 3 ml Lipase/Protease/Amylase ([place] [id number]) 1 cap FS .PER PROTOCOL PRN PRN Reason: TUBE OCCLUSION PROTOCOL Aspirin (Ecotrin) 81 mg PO DAILY [facility] Last Admin: 04/16/17 10:22 Dose: 81 mg Atenolol (Tenormin) 25 mg PO DAILY [facility] Last Admin: 04/16/17 10:23 Dose: 25 mg Atorvastatin Calcium (Lipitor) 40 mg PO HS [facility] Last Admin: 04/15/17 22:32 Dose: 40 mg Dextrose/Water (Dextrose 50%) 25 gm SLOW IVP PRN PRN PRN Reason: Hypoglycemia Divalproex Sodium (Depakote) 750 mg PO QAM [facility] Last Admin: 04/16/17 10:23 Dose: 750 mg Enoxaparin Sodium (Lovenox) 40 mg SC 0900 [facility] Last Admin: 04/16/17 10:23 Dose: 40 mg Famotidine (Pepcid) 20 mg PO Q12HR [facility] Last Admin: 04/16/17 10:22 Dose: 20 mg Glucagon (Glucagon) 1 mg IM PRN PRN PRN Reason: Hypoglycemia Cefepime HCl 1 gm/ Syringe 10 mls @ 120 mls/hr SLOW IVP 0300,1500 [facility] Last Admin: 04/16/17 02:55 Dose: 10 mls Levofloxacin 500 mg/ Device 100 mls @ 100 mls/hr IVPB Q24HR [facility] Last Admin: 04/15/17 22:31 Dose: 100 mls Norepinephrine Bitartrate (Levophed) 250 mls @ 0 mls/hr IVPB INF FLEX; Titrate PRN Reason: Protocol Last Admin: 04/11/17 14:54 Dose: 250 mls Fentanyl (Fentanyl Cadd) 250 mls @ 0 mls/hr IVPB INF FLEX; Titrate PRN Reason: Protocol Stop: 05/11/17 00:34 Fentanyl Citrate (Fentanyl Bolus) 250 mls @ 0 mls/hr IVPB PRN PRN; As Directed PRN Reason: Breakthrough pain Stop: 05/11/17 00:34 Potassium Chloride 40 meq/ (Sodium Chloride) 270 mls @ 135 mls/hr IVPB ASDIR PRN PRN Reason: FOR SERUM K+ 2.5 - 3.5 Potassium Chloride 40 meq/ (Device) 100 mls @ 50 mls/hr IVPB ASDIR PRN PRN Reason: FOR SERUM K+ 2.5 - 3.5 Last Admin: 04/16/17 05:57 Dose: 100 mls Magnesium Sulfate 1 gm/ Sodium (Chloride) 102 mls @ 102 mls/hr IV PRN PRN PRN Reason: MAG LEVEL 1.4 - 2.0 Magnesium Sulfate 2 gm/ Device 100 mls @ 100 mls/hr IVPB ASDIR PRN PRN Reason: MAGNESIUM < 1.4 Potassium Phosphate 9 mmol/ (Sodium Chloride) 103 mls @ 25.75 mls/hr IVPB ASDIR PRN PRN Reason: Phosphate 1.0-1.8 Potassium Phosphate 12 mmol/ (Sodium Chloride) 254 mls @ 63.5 mls/hr IV ASDIR PRN PRN Reason: Serum phosphate 0.5-0.9 Potassium Phosphate 15 mmol/ (Sodium Chloride) 255 mls @ 63.75 mls/hr IV ASDIR PRN PRN Reason: Serum Phos < 0.5 Dextrose/Water (D5w) 1,000 mls @ 0 mls/hr IV .Q0M PRN; As Directed PRN Reason: Hypoglycemia Sodium Chloride (Normal Saline 0.9%) 1,000 mls @ 50 mls/hr IV .Q20H [facility] Last Admin: 04/16/17 02:53 Dose: 1,000 mls Insulin Detemir 25 units/ (Miscellaneous Medication) 0.25 mls @ 0 mls/hr SC BID [facility] Last Admin: 04/16/17 10:22 Dose: 0.25 mls Insulin Human Lispro (Humalog) 0 units SC .AGGRESSIVE SLIDING PRN; Protocol PRN Reason: AGGRESSIVE SLIDING SCALE Last Admin: 04/16/17 10:24 Dose: 6 unit Lorazepam (Ativan) 2 mg SLOW IVP Q2H PRN PRN Reason: Anxiety to achieve Ulrich 2-3 Stop: 05/11/17 00:34 Last Admin: 04/16/17 04:08 Dose: 2 mg Magnesium Oxide (Magnesium Oxide) 400 mg PO BIDPRN PRN PRN Reason: FOR SERUM MAG 1.4 - 2.0 Magnesium Oxide (Magnesium Oxide) 800 mg PO PRN PRN PRN Reason: FOR SERUM MAG < 1.4 Methylprednisolone Sodium Succinate (Solu-Medrol) 20 mg IVP Q8HR [facility] Last Admin: 04/16/17 05:17 Dose: 20 mg Miscellaneous Medication (Phos-Nak) 1 pkt PO TIDPRN PRN PRN Reason: FOR PHOS LEVEL 1.0 - 1.8 Miscellaneous Medication (Phos-Nak) 2 pkt PO TIDPRN PRN PRN Reason: FOR PHOS LEVEL 0.5 - 1.0 Morphine Sulfate (Morphine) 2 mg SLOW IVP Q2H PRN PRN Reason: .BREAKTHROUGH PAIN Last Admin: 04/13/17 23:27 Dose: 2 mg Discontinue Previous Narcotic Pain Medications And Benzodiazepines 1 each FS .ONE [facility] Stop: 05/11/17 00:34 Ccu Electrolyte (Replacement Protocol) 0 each FS PRN PRN PRN Reason: FOR ELECTROLYTE REPLACEMENT Ondansetron HCl (Zofran) 4 mg IVP Q6H PRN PRN Reason: Nausea/Vomiting Phenytoin Sodium (Dilantin) 200 mg PO HS [facility] Last Admin: 04/15/17 22:32 Dose: 200 mg Potassium Chloride (K-Dur) 40 meq PO ASDIR PRN PRN Reason: FOR SERUM K+ 2.5 - 3.5 Potassium Chloride (Klor-Con) 40 meq PER TUBE ASDIR PRN PRN Reason: FOR SERUM K+ 2.5-3.5 Propofol (Diprivan) 1,000 mg IV INF PRN; Protocol PRN Reason: TO ACHIEVE ULRICH SCORE 2-3 Stop: 05/11/17 00:34 Last Admin: 04/16/17 10:26 Dose: 1,000 mg Sodium Bicarbonate (Bicarbonate, Sodium) 650 mg PER TUBE .PER PROTOCOL PRN PRN Reason: ENTERAL TUBE OCCLUSION Sodium Chloride (Flush - Normal Saline) 10 ml IVF Q12HR [facility] Last Admin: 04/16/17 10:23 Dose: 10 ml Sodium Chloride (Flush - Normal Saline) 10 ml IVF PRN PRN PRN Reason: Saline Flush
[2017-04-16] MEDS: Levofloxacin 750 mg/D5W 500 MG in Premix Bag 1 BAG IVPB SCH (22:57)
[2017-04-16] MEDS: Atorvastatin Calcium 40 MG TAB PO SCH (23:10)
[2017-04-17] MEDS: Propofol 1,000 MG/100 ML VIAL IV PRN ×3 (02:03→09:05)
[2017-04-17] MEDS: Morphine 4 MG/ML VIAL SLOW IVP PRN (02:23)
[2017-04-17] MEDS: Cefepime 1 GM in Syringe 10 ML SLOW IVP SCH ×2 (04:20→14:18)
[2017-04-17 05:23] LABS: Anion Gap 10 mmol/L (10-20); BUN (Urea Nitrogen) 16 mg/dL (8.4-25.7); Calc. Creatinine Clearance 94 mL/min (70-130); Calcium 7.7 mg/dL (7.8-10.44); Carbon Dioxide 32 mmol/L (23-31); Chloride 112 mmol/L (98-107); Estimated GFR-MDRD 89
[2017-04-17 05:38] LABS: Anisocytosis SLIGHT = 6-15 cells (100X) (0-5/hpf); Band 9 % (5-11); Hematocrit 23.6 % (42.0-52.0); Hypochromia MODERATE=16-30 cells (100X) (0-5/hpf); Mean Platelet Volume 7.3 fL (7.4-10.4); Neutrophil 65 % (42-75); Polychromasia SLIGHT = 2-3 cells (100X) (0-2/hpf); Red Blood Cell (RBC) Count 2.49 mill/uL (4.70-6.10); White Blood Cell (WBC) Count 11.2 thou/uL (4.8-10.8)
[2017-04-17] MEDS: HumaLOG 300 UNITS/3 ML VIAL SC PRN ×4 (05:51→21:29)
[2017-04-17 06:59] LABS: Modified Allen's Test NOT DONE; Oxyhemoglobin 95.6 % (94.0-97.0); Pressure Support 20 cmH2O; Sodium 153 mmol/L (135-148); Vent YES
[2017-04-17 07:00] LABS: Mode PSV
--- NOTE | 2017-04-17 08:46 | RAD ---
SINGLE VIEW OF THE CHEST: Comparison: 04-16-17 History: Ventilated patient with respiratory failure. FINDINGS: Single view of the chest shows an enlarged cardiomediastinal silhouette. The lines and tubes are unch anged in position. Three is stable mixed alveolar/interstitial opacities in the lungs. IMPRESSION: Stable exam. POS: [facility]
--- NOTE | 2017-04-17 08:48 | PRG ---
DATE OF SERVICE: 04/17/2017 Delio Darden is a 66-year-old morbidly obese gentleman who is intubated on the vent, appears to be en cephalopathic. PHYSICAL EXAMINATION: VITAL SIGNS: He is breathing 30 times on a CPAP, sats are 90%. Pulse 96, blood pressure 137/86. CHEST: Chest revealed extensive rhonchi and wheezing. CARDIAC: Sinus tachycardia. ABDOMEN: Soft. No masses. LABORATORY: White count is 9000, H&H 7 and 23, platelet count 203, pO2 is 73, pCO2 of 74, pressure s upport of 20, PEEP of 5, 35% FiO2. Sodium 151. Glucose 270. X-ray shows a trach in place, but no obvious infiltrates. IMPRESSION: 1. Respiratory failure, status post tracheostomy. 2. Encephalopathy. 3. Renal failure. 4. Electrolyte imbalance. PLAN: Continue steroids. Continue neb treatments. Eventually placement. Hopefully, once the bronchospasm improves will consider trying to place him on a trach collar. He is a DNR at this stage. One-half hour critical care time.
[2017-04-17] MEDS: Lorazepam 2 MG/ML VIAL SLOW IVP PRN ×2 (09:05→14:32)
[2017-04-17] MEDS: Divalproex Sodium 250 MG (DR) TAB PO SCH (09:05)
[2017-04-17] MEDS: Enoxaparin Sodium 40 MG/0.4 ML SYRINGE SC SCH (09:05)
[2017-04-17] MEDS: Atenolol 25 MG TAB PO SCH (09:05)
[2017-04-17] MEDS: Famotidine 20 MG TAB PO SCH ×2 (09:06→21:10)
[2017-04-17] MEDS: Potassium Chloride 40 MEQ in Premix Bag 1 BAG IVPB PRN (09:06)
[2017-04-17] MEDS: Aspirin 81 mg Enteric Coated Tablet PO SCH (09:06)
[2017-04-17] MEDS: Insulin Detemir 100 UNITS/ML 25 UNITS in Pre-Filled Syringe 1 EACH SC SCH ×2 (09:15→21:10)
[2017-04-17] MEDS: Sodium Chloride 0.45% 1,000 ML IV SCH (09:52)
--- NOTE | 2017-04-17 11:29 | PDOC.PN ---
- Subjective Encounter Start Date: 04/17/17 Encounter Start Time: 10:15 Subjective: awake, not oriented, on vent with trach -: moves right UE - Objective MAR Reviewed: Yes Vital Signs & Weight: Vital Signs (12 hours) Temp Pulse Resp BP Pulse Ox 04/17/17 11:11 84 98/52 L 04/17/17 11:09 86 39 H 95 04/17/17 10:00 17 04/17/17 09:05 88 129/61 04/17/17 08:00 99.2 F 37 H 04/17/17 07:00 99.2 F 04/17/17 06:00 35 H 04/17/17 04:00 35 H 04/17/17 02:28 91 136/62 04/17/17 02:26 91 19 97 04/17/17 02:00 35 H 04/17/17 00:00 27 H Weight Admit Weight 202 lb 9.664 oz Weight 202 lb 9.664 oz Most Recent Monitor Data Heart Rate from ECG 87 NIBP 107/55 NIBP BP-Mean 72 Respiration from ECG 9 SpO2 95 I&O: 04/16/17 04/17/17 04/18/17 06:59 06:59 06:59 Intake Total 3361 2861 100 Output Total 5040 2300 385 Balance -8525 631 -065 Result Diagrams: 04/17/17 04:20 04/17/17 04:20 Additional Labs: Accuchecks 04/17/17 04/17/17 04/16/17 10:09 05:50 23:09 POC Glucose 169 H 270 H 201 H 04/16/17 15:08 POC Glucose 203 H Phys Exam - Physical Examination HEENT: PERRLA, sclera anicteric Neck: no JVD trach+ Respiratory: no wheezing, no rales rhonchi+ Cardiovascular: RRR, no significant murmur Gastrointestinal: soft, positive bowel sounds Musculoskeletal: pulses present, edema present contractures of LE, wasting, foot drop b/l Dx/Plan (1) Acute respiratory failure with hypoxemia Code(s): J96.01 - ACUTE RESPIRATORY FAILURE WITH HYPOXIA Status: Acute Comment: had revision of his trach (2) NSTEMI (non-ST elevated myocardial infarction) Code(s): I21.4 - NON-ST ELEVATION (NSTEMI) MYOCARDIAL INFARCTION Status: Acute (3) Pneumonia Code(s): J18.9 - PNEUMONIA, UNSPECIFIED ORGANISM Status: Acute Qualifiers: Pneumonia type: aspiration pneumonia Aspiration pneumonia type: due to regurgitated food (4) Sepsis Code(s): A41.9 - SEPSIS, UNSPECIFIED ORGANISM Status: Acute Qualifiers: Sepsis type: sepsis due to unspecified organism Qualified Code(s): A41.9 - Sepsis, unspecified organism (5) Dyslipidemia Code(s): E78.5 - HYPERLIPIDEMIA, UNSPECIFIED Status: Chronic (6) GERD (gastroesophageal reflux disease) Code(s): K21.9 - GASTRO-ESOPHAGEAL REFLUX DISEASE WITHOUT ESOPHAGITIS Status: Chronic Qualifiers: Esophagitis presence: esophagitis presence not specified Qualified Code(s) : K21.9 - Gastro-esophageal reflux disease without esophagitis (7) Obesity (BMI 30.0-34.9) Code(s): E66.9 - OBESITY, UNSPECIFIED Status: Chronic (8) CVA, old, aphasia Code(s): I69.320 - APHASIA FOLLOWING CEREBRAL INFARCTION Status: Chronic Comment: left hemiplegia, with wasting of LE, foot drop b/l (9) Diabetes mellitus type 2 in obese Code(s): E11.69 - TYPE 2 DIABETES MELLITUS WITH OTHER SPECIFIED COMPLICATION; E66.9 - OBESITY, UNSPECIFIED Status: Chronic - Plan d/w , peg on -: weaning per pulm advice -: is on cefepime and levaquin -: steroids, gentle iv hydration -: ng feeding, Hb around 7g, replace electrolytes * . Review of Systems - Medications/Allergies Allergies/Adverse Reactions: Allergies Allergy/AdvReac Type Severity Reaction Status Date / Time No Known Drug Allergies Allergy Verified 03/17/16 05:25 Medications: Current Medications Acetaminophen (Tylenol) 650 mg CO Q4H PRN PRN Reason: Headache/Fever or Pain Last Admin: 04/11/17 02:31 Dose: 650 mg Acetaminophen (Tylenol) 650 mg PO Q4H PRN PRN Reason: Headache/Fever or Pain Last Admin: 04/13/17 21:36 Dose: 650 mg Albuterol/Ipratropium (Duoneb) 3 ml NEB [id number] FLEX Last Admin: 04/17/17 11:09 Dose: 3 ml Lipase/Protease/Amylase (Renu Diaz [id number]) 1 cap FS .PER PROTOCOL PRN PRN Reason: TUBE OCCLUSION PROTOCOL Aspirin (Ecotrin) 81 mg PO DAILY [facility] Last Admin: 04/17/17 09:06 Dose: 81 mg Atenolol (Tenormin) 25 mg PO DAILY [facility] Last Admin: 04/17/17 09:05 Dose: 25 mg Atorvastatin Calcium (Lipitor) 40 mg PO HS [facility] Last Admin: 04/16/17 23:10 Dose: 40 mg Dextrose/Water (Dextrose 50%) 25 gm SLOW IVP PRN PRN PRN Reason: Hypoglycemia Divalproex Sodium (Depakote) 750 mg PO QAM [facility] Last Admin: 04/17/17 09:05 Dose: 750 mg Enoxaparin Sodium (Lovenox) 40 mg SC 0900 [facility] Last Admin: 04/17/17 09:05 Dose: 40 mg Famotidine (Pepcid) 20 mg PO Q12HR [facility] Last Admin: 04/17/17 09:06 Dose: 20 mg Glucagon (Glucagon) 1 mg IM PRN PRN PRN Reason: Hypoglycemia Cefepime HCl 1 gm/ Syringe 10 mls @ 120 mls/hr SLOW IVP 0300,1500 [facility] Last Admin: 04/17/17 04:20 Dose: 10 mls Levofloxacin 500 mg/ Device 100 mls @ 100 mls/hr IVPB Q24HR [facility] Last Admin: 04/16/17 22:57 Dose: 100 mls Norepinephrine Bitartrate (Levophed) 250 mls @ 0 mls/hr IVPB INF [facility]; Titrate PRN Reason: Protocol Last Admin: 04/11/17 14:54 Dose: 250 mls Fentanyl (Fentanyl Cadd) 250 mls @ 0 mls/hr IVPB INF [facility]; Titrate PRN Reason: Protocol Stop: 05/11/17 00:34 Fentanyl Citrate (Fentanyl Bolus) 250 mls @ 0 mls/hr IVPB PRN PRN; As Directed PRN Reason: Breakthrough pain Stop: 05/11/17 00:34 Potassium Chloride 40 meq/ (Sodium Chloride) 270 mls @ 135 mls/hr IVPB ASDIR PRN PRN Reason: FOR SERUM K+ 2.5 - 3.5 Potassium Chloride 40 meq/ (Device) 100 mls @ 50 mls/hr IVPB ASDIR PRN PRN Reason: FOR SERUM K+ 2.5 - 3.5 Last Admin: 04/17/17 09:06 Dose: 100 mls Magnesium Sulfate 1 gm/ Sodium (Chloride) 102 mls @ 102 mls/hr IV PRN PRN PRN Reason: MAG LEVEL 1.4 - 2.0 Magnesium Sulfate 2 gm/ Device 100 mls @ 100 mls/hr IVPB ASDIR PRN PRN Reason: MAGNESIUM < 1.4 Potassium Phosphate 9 mmol/ (Sodium Chloride) 103 mls @ 25.75 mls/hr IVPB ASDIR PRN PRN Reason: Phosphate 1.0-1.8 Potassium Phosphate 12 mmol/ (Sodium Chloride) 254 mls @ 63.5 mls/hr IV ASDIR PRN PRN Reason: Serum phosphate 0.5-0.9 Potassium Phosphate 15 mmol/ (Sodium Chloride) 255 mls @ 63.75 mls/hr IV ASDIR PRN PRN Reason: Serum Phos < 0.5 Dextrose/Water (D5w) 1,000 mls @ 0 mls/hr IV .Q0M PRN; As Directed PRN Reason: Hypoglycemia Insulin Detemir 25 units/ (Miscellaneous Medication) 0.25 mls @ 0 mls/hr SC BID [facility] Last Admin: 04/17/17 09:15 Dose: 0.25 mls Sodium Chloride (1/2 Normal Saline) 1,000 mls @ 50 mls/hr IV .Q20H [facility] Last Admin: 04/17/17 09:52 Dose: Not Given Insulin Human Lispro (Humalog) 0 units SC .AGGRESSIVE SLIDING PRN; Protocol PRN Reason: AGGRESSIVE SLIDING SCALE Last Admin: 04/17/17 10:14 Dose: 3 unit Lorazepam (Ativan) 2 mg SLOW IVP Q2H PRN PRN Reason: Anxiety to achieve Ulrich 2-3 Stop: 05/11/17 00:34 Last Admin: 04/17/17 09:05 Dose: 2 mg Magnesium Oxide (Magnesium Oxide) 400 mg PO BIDPRN PRN PRN Reason: FOR SERUM MAG 1.4 - 2.0 Magnesium Oxide (Magnesium Oxide) 800 mg PO PRN PRN PRN Reason: FOR SERUM MAG < 1.4 Methylprednisolone Sodium Succinate (Solu-Medrol) 20 mg IVP Q8HR [facility] Last Admin: 04/17/17 05:46 Dose: 20 mg Miscellaneous Medication (Phos-Nak) 1 pkt PO TIDPRN PRN PRN Reason: FOR PHOS LEVEL 1.0 - 1.8 Miscellaneous Medication (Phos-Nak) 2 pkt PO TIDPRN PRN PRN Reason: FOR PHOS LEVEL 0.5 - 1.0 Morphine Sulfate (Morphine) 2 mg SLOW IVP Q2H PRN PRN Reason: .BREAKTHROUGH PAIN Last Admin: 04/17/17 02:23 Dose: 2 mg Discontinue Previous Narcotic Pain Medications And Benzodiazepines 1 each FS .ONE [facility] Stop: 05/11/17 00:34 Ccu Electrolyte (Replacement Protocol) 0 each FS PRN PRN PRN Reason: FOR ELECTROLYTE REPLACEMENT Ondansetron HCl (Zofran) 4 mg IVP Q6H PRN PRN Reason: Nausea/Vomiting Phenytoin Sodium (Dilantin) 200 mg PO HS [facility] Last Admin: 04/16/17 23:10 Dose: 200 mg Potassium Chloride (K-Dur) 40 meq PO ASDIR PRN PRN Reason: FOR SERUM K+ 2.5 - 3.5 Potassium Chloride (Klor-Con) 40 meq PER TUBE ASDIR PRN PRN Reason: FOR SERUM K+ 2.5-3.5 Propofol (Diprivan) 1,000 mg IV INF PRN; Protocol PRN Reason: TO ACHIEVE ULRICH SCORE 2-3 Stop: 05/11/17 00:34 Last Admin: 04/17/17 09:05 Dose: 1,000 mg Sodium Bicarbonate (Bicarbonate, Sodium) 650 mg PER TUBE .PER PROTOCOL PRN PRN Reason: ENTERAL TUBE OCCLUSION Sodium Chloride (Flush - Normal Saline) 10 ml IVF Q12HR [facility] Last Admin: 04/17/17 09:06 Dose: 10 ml Sodium Chloride (Flush - Normal Saline) 10 ml IVF PRN PRN PRN Reason: Saline Flush
[2017-04-17] MEDS: Atorvastatin Calcium 40 MG TAB PO SCH (21:10)
[2017-04-17] MEDS: Levofloxacin 750 mg/D5W 500 MG in Premix Bag 1 BAG IVPB SCH (22:30)
[2017-04-18] MEDS: Lorazepam 2 MG/ML VIAL SLOW IVP PRN ×2 (00:55→04:06)
[2017-04-18] MEDS: Acetaminophen 325 MG TAB PO PRN (00:55)
[2017-04-18] MEDS: Sodium Chloride 0.45% 1,000 ML IV SCH (00:55)
[2017-04-18] MEDS: Cefepime 1 GM in Syringe 10 ML SLOW IVP SCH ×2 (02:40→15:52)
[2017-04-18 05:00] LABS: Anisocytosis SLIGHT = 6-15 cells (100X) (0-5/hpf); Band 7 % (5-11); Hematocrit 22.2 % (42.0-52.0); Hypochromia MODERATE=16-30 cells (100X) (0-5/hpf); Mean Platelet Volume 6.7 fL (7.4-10.4); Metamyelocyte 1 % (0-0); Neutrophil 63 % (42-75); Red Blood Cell (RBC) Count 2.34 mill/uL (4.70-6.10); White Blood Cell (WBC) Count 11.3 thou/uL (4.8-10.8)
[2017-04-18] MEDS: HumaLOG 300 UNITS/3 ML VIAL SC PRN ×2 (05:57→11:11)
[2017-04-18] MEDS: Morphine 4 MG/ML VIAL SLOW IVP PRN (06:51)
[2017-04-18 06:57] LABS: Oxyhemoglobin 95.1 % (94.0-97.0); Sodium 152 mmol/L (135-148)
[2017-04-18 07:11] LABS: Mode PSV; Pressure Support 20 cmH2O
[2017-04-18 08:25] LABS: Anion Gap 8 mmol/L (10-20); BUN (Urea Nitrogen) 17 mg/dL (8.4-25.7); Calc. Creatinine Clearance 85 mL/min (70-130); Carbon Dioxide 36 mmol/L (23-31); Chloride 111 mmol/L (98-107); Estimated GFR-MDRD 88
--- NOTE | 2017-04-18 08:26 | RAD ---
PORTABLE CHEST: 04/18/2017 PROVIDED CLINICAL HISTORY: Respiratory insufficiency. COMPARISON: 04/17/2017 FINDINGS: Significant interval change with respect to the prior exam is not evident. IMPRESSION: As above. POS: ERASTO
--- NOTE | 2017-04-18 09:26 | PRG ---
DATE OF SERVICE: 04/18/2017 This morning appears to be less tachypneic, tachycardic. PHYSICAL EXAMINATION: VITAL SIGNS: His respiratory rate is 27, blood pressure 136/62, pulse 89, respirations 18. I's and O's 2861 in, 230 out. NEURO: Neurologically, he is still encephalopathic. CHEST: Chest reveals decreased breath sounds, no wheezing. CARDIAC: Normal S1, S2. ABDOMEN: Soft, no masses. LABORATORY: H&H is 7 and 22, platelet count 234, pO2 is 84, pCO2 70.40. His sodium is 152. Electr olytes are otherwise normal. X-ray taken today shows a trach in place, a questionable left-sided infiltrate. IMPRESSION: 1. Respiratory failure, trach. 2. Encephalopathy. 3. Possibly pneumonia. PLAN: He is scheduled for a PEG today. Will try and hopefully get him on a trach collar. Eventuall y long-term placement. This is one-half hour critical care time.
[2017-04-18] MEDS: Insulin Detemir 100 UNITS/ML 25 UNITS in Pre-Filled Syringe 1 EACH SC SCH (09:29)
[2017-04-18] MEDS: Divalproex Sodium 250 MG (DR) TAB PO SCH (09:30)
[2017-04-18] MEDS: Aspirin 81 mg Enteric Coated Tablet PO SCH (09:30)
[2017-04-18] MEDS: Famotidine 20 MG TAB PO SCH (09:31)
[2017-04-18] MEDS: Enoxaparin Sodium 40 MG/0.4 ML SYRINGE SC SCH (09:31)
[2017-04-18] MEDS: Atenolol 25 MG TAB PO SCH (10:21)
--- NOTE | 2017-04-18 11:20 | PDOC.PN ---
- Subjective Encounter Start Date: 04/18/17 Encounter Start Time: 08:00 Subjective: awakens to touch, not oriented -: on trach, vent - Objective MAR Reviewed: Yes Vital Signs & Weight: Vital Signs (12 hours) Temp Pulse Resp BP Pulse Ox 04/18/17 10:21 89 131/62 04/18/17 06:38 89 131/62 04/18/17 06:35 85 27 H 97 04/18/17 06:00 100.0 F H 35 H 04/18/17 05:00 100.1 F H 04/18/17 04:00 100.7 F H 34 H 04/18/17 02:55 89 117/53 L 04/18/17 02:53 89 27 H 98 04/18/17 02:00 23 H 04/18/17 00:00 99.9 F H 23 H Weight Admit Weight 202 lb 9.664 oz Weight 185 lb 10.067 oz Most Recent Monitor Data Heart Rate from ECG 99 NIBP 143/73 NIBP BP-Mean 91 Respiration from ECG 26 SpO2 96 I&O: 04/17/17 04/18/17 04/19/17 06:59 06:59 06:59 Intake Total 2861 3360 Output Total 2300 2340 140 Balance 561 1020 -140 Result Diagrams: 04/18/17 04:00 04/18/17 04:00 Additional Labs: Accuchecks 04/18/17 04/17/17 04/17/17 05:55 21:29 15:20 POC Glucose 207 H 225 H 253 H Phys Exam - Physical Examination HEENT: PERRLA, sclera anicteric Neck: no JVD trach+ Respiratory: no wheezing, no rales Cardiovascular: RRR, no significant murmur Gastrointestinal: soft, non-tender, positive bowel sounds Musculoskeletal: pulses present, edema present Neurological: non-focal left hemiplegia, has atrophic legs, foot drop b/l Dx/Plan (1) Acute respiratory failure with hypoxemia Code(s): J96.01 - ACUTE RESPIRATORY FAILURE WITH HYPOXIA Status: Acute Comment: had revision of his trach (2) NSTEMI (non-ST elevated myocardial infarction) Code(s): I21.4 - NON-ST ELEVATION (NSTEMI) MYOCARDIAL INFARCTION Status: Acute Comment: stable (3) Pneumonia Code(s): J18.9 - PNEUMONIA, UNSPECIFIED ORGANISM Status: Acute Qualifiers: Pneumonia type: aspiration pneumonia Aspiration pneumonia type: due to regurgitated food (4) Sepsis Code(s): A41.9 - SEPSIS, UNSPECIFIED ORGANISM Status: Acute Qualifiers: Sepsis type: sepsis due to unspecified organism Qualified Code(s): A41.9 - Sepsis, unspecified organism (5) Dyslipidemia Code(s): E78.5 - HYPERLIPIDEMIA, UNSPECIFIED Status: Chronic (6) GERD (gastroesophageal reflux disease) Code(s): K21.9 - GASTRO-ESOPHAGEAL REFLUX DISEASE WITHOUT ESOPHAGITIS Status: Chronic Qualifiers: Esophagitis presence: esophagitis presence not specified Qualified Code(s) : K21.9 - Gastro-esophageal reflux disease without esophagitis (7) Obesity (BMI 30.0-34.9) Code(s): E66.9 - OBESITY, UNSPECIFIED Status: Chronic (8) CVA, old, aphasia Code(s): I69.320 - APHASIA FOLLOWING CEREBRAL INFARCTION Status: Chronic Comment: left hemiplegia, with wasting of LE, foot drop b/l (9) Diabetes mellitus type 2 in obese Code(s): E11.69 - TYPE 2 DIABETES MELLITUS WITH OTHER SPECIFIED COMPLICATION; E66.9 - OBESITY, UNSPECIFIED Status: Chronic - Plan will keep him npo after midnight for peg in am by -: weaning as tolerated -: is on cefepime and levaquin -: steroids, nebs -: poor buttermaker continuous churn prognosis with bed bound status * . Review of Systems - Medications/Allergies Allergies/Adverse Reactions: Allergies Allergy/AdvReac Type Severity Reaction Status Date / Time No Known Drug Allergies Allergy Verified 03/17/16 05:25 Medications: Current Medications Acetaminophen (Tylenol) 650 mg [place] Q4H PRN PRN Reason: Headache/Fever or Pain Last Admin: 04/11/17 02:31 Dose: 650 mg Acetaminophen (Tylenol) 650 mg PO Q4H PRN PRN Reason: Headache/Fever or Pain Last Admin: 04/18/17 00:55 Dose: 650 mg Albuterol/Ipratropium (Duoneb) 3 ml NEB [id number] FLEX Last Admin: 04/18/17 06:35 Dose: 3 ml Lipase/Protease/Amylase (Renu Diaz [id number]) 1 cap FS .PER PROTOCOL PRN PRN Reason: TUBE OCCLUSION PROTOCOL Aspirin (Ecotrin) 81 mg PO DAILY [facility] Last Admin: 04/18/17 09:30 Dose: 81 mg Atenolol (Tenormin) 25 mg PO DAILY [facility] Last Admin: 04/18/17 10:21 Dose: 25 mg Atorvastatin Calcium (Lipitor) 40 mg PO HS [facility] Last Admin: 04/17/17 21:10 Dose: 40 mg Dextrose/Water (Dextrose 50%) 25 gm SLOW IVP PRN PRN PRN Reason: Hypoglycemia Divalproex Sodium (Depakote) 750 mg PO QAM [facility] Last Admin: 04/18/17 09:30 Dose: 750 mg Enoxaparin Sodium (Lovenox) 40 mg SC 0900 [facility] Last Admin: 04/18/17 09:31 Dose: 40 mg Famotidine (Pepcid) 20 mg PO Q12HR [facility] Last Admin: 04/18/17 09:31 Dose: 20 mg Glucagon (Glucagon) 1 mg IM PRN PRN PRN Reason: Hypoglycemia Cefepime HCl 1 gm/ Syringe 10 mls @ 120 mls/hr SLOW IVP 0300,1500 [facility] Last Admin: 04/18/17 02:40 Dose: 10 mls Levofloxacin 500 mg/ Device 100 mls @ 100 mls/hr IVPB Q24HR [facility] Last Admin: 04/17/17 22:30 Dose: 100 mls Norepinephrine Bitartrate (Levophed) 250 mls @ 0 mls/hr IVPB INF [facility]; Titrate PRN Reason: Protocol Last Admin: 04/11/17 14:54 Dose: 250 mls Fentanyl (Fentanyl Cadd) 250 mls @ 0 mls/hr IVPB INF [facility]; Titrate PRN Reason: Protocol Stop: 05/11/17 00:34 Fentanyl Citrate (Fentanyl Bolus) 250 mls @ 0 mls/hr IVPB PRN PRN; As Directed PRN Reason: Breakthrough pain Stop: 05/11/17 00:34 Potassium Chloride 40 meq/ (Sodium Chloride) 270 mls @ 135 mls/hr IVPB ASDIR PRN PRN Reason: FOR SERUM K+ 2.5 - 3.5 Potassium Chloride 40 meq/ (Device) 100 mls @ 50 mls/hr IVPB ASDIR PRN PRN Reason: FOR SERUM K+ 2.5 - 3.5 Last Admin: 04/17/17 09:06 Dose: 100 mls Magnesium Sulfate 1 gm/ Sodium (Chloride) 102 mls @ 102 mls/hr IV PRN PRN PRN Reason: MAG LEVEL 1.4 - 2.0 Magnesium Sulfate 2 gm/ Device 100 mls @ 100 mls/hr IVPB ASDIR PRN PRN Reason: MAGNESIUM < 1.4 Potassium Phosphate 9 mmol/ (Sodium Chloride) 103 mls @ 25.75 mls/hr IVPB ASDIR PRN PRN Reason: Phosphate 1.0-1.8 Potassium Phosphate 12 mmol/ (Sodium Chloride) 254 mls @ 63.5 mls/hr IV ASDIR PRN PRN Reason: Serum phosphate 0.5-0.9 Potassium Phosphate 15 mmol/ (Sodium Chloride) 255 mls @ 63.75 mls/hr IV ASDIR PRN PRN Reason: Serum Phos < 0.5 Dextrose/Water (D5w) 1,000 mls @ 0 mls/hr IV .Q0M PRN; As Directed PRN Reason: Hypoglycemia Insulin Detemir 25 units/ (Miscellaneous Medication) 0.25 mls @ 0 mls/hr SC BID [facility] Last Admin: 04/18/17 09:29 Dose: 0.25 mls Sodium Chloride (1/2 Normal Saline) 1,000 mls @ 50 mls/hr IV .Q20H [facility] Last Admin: 04/18/17 00:55 Dose: 1,000 mls Insulin Human Lispro (Humalog) 0 units SC .AGGRESSIVE SLIDING PRN; Protocol PRN Reason: AGGRESSIVE SLIDING SCALE Last Admin: 04/18/17 11:11 Dose: 6 unit Lorazepam (Ativan) 2 mg SLOW IVP Q2H PRN PRN Reason: Anxiety to achieve Ulrich 2-3 Stop: 05/11/17 00:34 Last Admin: 04/18/17 04:06 Dose: 2 mg Magnesium Oxide (Magnesium Oxide) 400 mg PO BIDPRN PRN PRN Reason: FOR SERUM MAG 1.4 - 2.0 Magnesium Oxide (Magnesium Oxide) 800 mg PO PRN PRN PRN Reason: FOR SERUM MAG < 1.4 Methylprednisolone Sodium Succinate (Solu-Medrol) 20 mg IVP BID [facility] Miscellaneous Medication (Phos-Nak) 1 pkt PO TIDPRN PRN PRN Reason: FOR PHOS LEVEL 1.0 - 1.8 Miscellaneous Medication (Phos-Nak) 2 pkt PO TIDPRN PRN PRN Reason: FOR PHOS LEVEL 0.5 - 1.0 Morphine Sulfate (Morphine) 2 mg SLOW IVP Q2H PRN PRN Reason: .BREAKTHROUGH PAIN Last Admin: 04/18/17 06:51 Dose: 2 mg Discontinue Previous Narcotic Pain Medications And Benzodiazepines 1 each FS .ONE [facility] Stop: 05/11/17 00:34 Ccu Electrolyte (Replacement Protocol) 0 each FS PRN PRN PRN Reason: FOR ELECTROLYTE REPLACEMENT Ondansetron HCl (Zofran) 4 mg IVP Q6H PRN PRN Reason: Nausea/Vomiting Phenytoin Sodium (Dilantin) 200 mg PO HS [facility] Last Admin: 04/17/17 21:10 Dose: 200 mg Potassium Chloride (K-Dur) 40 meq PO ASDIR PRN PRN Reason: FOR SERUM K+ 2.5 - 3.5 Potassium Chloride (Klor-Con) 40 meq PER TUBE ASDIR PRN PRN Reason: FOR SERUM K+ 2.5-3.5 Propofol (Diprivan) 1,000 mg IV INF PRN; Protocol PRN Reason: TO ACHIEVE ULRICH SCORE 2-3 Stop: 05/11/17 00:34 Last Admin: 04/17/17 09:05 Dose: 1,000 mg Sodium Bicarbonate (Bicarbonate, Sodium) 650 mg PER TUBE .PER PROTOCOL PRN PRN Reason: ENTERAL TUBE OCCLUSION Sodium Chloride (Flush - Normal Saline) 10 ml IVF Q12HR [facility] Last Admin: 04/18/17 09:32 Dose: 10 ml Sodium Chloride (Flush - Normal Saline) 10 ml IVF PRN PRN PRN Reason: Saline Flush
[2017-04-18 13:33] VITALS: BMI 36.2
[2017-04-18 14:58] VITALS: BP 153/73
[2017-04-18 16:01] VITALS: TEMP 98.7
--- NOTE | 2017-04-19 00:47 | DIS ---
DATE OF ADMISSION: 04/11/2017 DATE OF DISCHARGE: 04/18/2017 DISCHARGE DISPOSITION: To LTAC. PRIMARY DISCHARGE DIAGNOSES: Acute on chronic respiratory failure on tracheostomy and vent; non-ST s egment elevation myocardial infarction, resolved and is stable; pneumonia due to aspiration; sepsis s econdary to above. SECONDARY DISCHARGE DIAGNOSES: History of cerebrovascular accident with left hemiplegia and chronic wasting of both lower extremities with bilateral foot drop, aphasia, obesity, gastroesophageal reflux disease, dyslipidemia, diabetes mellitus type 2. PROCEDURES DONE DURING HOSPITALIZATION: Chest x-ray done showed endotracheal tube and has tracheosto my stoma opening. CTA of the abdomen and pelvis without contrast done showed no free air or bowel di stention. No evidence of bowel obstruction. No appendicitis or diverticulitis was seen. There was prominent airspace opacities in the lower legs bilaterally compatible with bilateral pneumonia and/or aspiration. Echo with 2D Doppler done showed an EF of 40%-45%. There was hypokinetic motion of the mid anterior wall of the LV diastolic dysfunction. Blood cultures x2 no growth. Urine culture, no growth. Respiratory culture grew yeast species. H&H 7 and 20 with platelet count of 234 and 63% romario trophils, white count of 11 on the day of discharge. Patient had a white count of 15 with 43% bands on the day of admission. Blood gas on the day of admission showed a pH of 7.2, pCO2 of 53, pO2 of 21 3. This was on the ventilator with 100% FIO2. Discharge sodium is 152, BUN 17, creatinine 1.0. Ser um bicarbonate was 36. He had a troponin I peaking up to 7.79, CK-MB 10.4. BNP was 73, albumin was 3.0 on the day of admission. Cortisol was 19 on the day of admission. DISCHARGE MEDICATIONS: Cefepime 1 gram daily to be continued for another 6 days, Levaquin 500 mg IV daily for another 6 days, Solu-Medrol 20 mg IV twice daily, multivitamin 1 capsule daily, phenytoin 2 00 mg p.o. at bedtime, Ultram 50 mg p.o. twice daily p.r.n., Travatan eyedrops as before, Levemir 25 units subcutaneous twice daily, Pepcid 20 mg twice daily, Lovenox 40 mg subcutaneous daily for DVT pr ophylaxis, Depakote extended release 750 mg p.o. q.a.m., Lipitor 40 mg p.o. daily, atenolol 25 mg p.o . daily, aspirin 81 mg p.o. daily. ALLERGIES: No known drug allergies. INPATIENT CONSULTS: Dr. Delacruz for general surgery, Dr. Grace/Dr. Tejada for pulmonology, Dr. Home dixon for cardiology. BRIEF COURSE DURING HOSPITALIZATION: Patient initially got admitted on the after he was sent fr half-way for shortness of breath with low saturations. Had a fever of 103. On arrival, he garcía d a pH of 7.2. He had a tracheostomy stoma and was intubated through the stoma. Also, his systolic blood pressures were in the 70s and essentially patient was placed in ICU for septic shock, aspiratio n pneumonia, acute respiratory failure. He also had a troponin of 4 on admission with subsequent lev els going up to 7. Patient had history of CVA with left hemiplegia with chronic lower extremity atro phy with bilateral foot drops and was essentially bed bound at the half-way. In view of his poor functional status and current septic shock, I had discussions with patient's , who wanted him to be DNR. He was multiple attempts of weaning, patient totally off ventilator were unsuccessful. Thi s morning, he was placed on trach collar, but patient started to have tachypnea and was placed on CPA P on the ventilator. He needs further weaning at the LTAC. Also, patient will require a PEG tube is currently being fed by NG tube. His overall prognosis is poor due to above-mentioned factors. He n eeds to continue cefepime and Levaquin for another 6 days and to be discontinued thereafter. He has been accepted to LTAC today and will be shortly discharged. A total of 35 minutes was spent on discharge plan. Please see a [id number] documentation on [facility] for the day of discharge.
== END 2017-04-18 17:00 | DRG 853 ==
LOC: ERS 20:52 → CCU 04-11 00:55
PROVIDERS: ADMIT Internal Medicine; ATTEND Internal Medicine
PROC: 0BH17EZ Insertion of Endotracheal Airway into Trachea, Via Natural or Artificial Opening (ICD-10-PCS; principal; 2017-04-11)
PROC: 5A1955Z Respiratory Ventilation, Greater than 96 Consecutive Hours (ICD-10-PCS; 2017-04-11)
PROC: 02H633Z Insertion of Infusion Device into Right Atrium, Percutaneous Approach (ICD-10-PCS; 2017-04-11)
PROC: 0BW10FZ Revision of Tracheostomy Device in Trachea, Open Approach (ICD-10-PCS; 2017-04-12)
DX: A41.9 Sepsis, unspecified organism (principal); I21.4 Non-ST elevation (NSTEMI) myocardial infarction; J96.21 Acute and chronic respiratory failure with hypoxia; D65 Disseminated intravascular coagulation [defibrination syndrome]; J69.0 Pneumonitis due to inhalation of food and vomit; G93.41 Metabolic encephalopathy; R65.21 Severe sepsis with septic shock; Z93.0 Tracheostomy status; J95.03 Malfunction of tracheostomy stoma; N17.9 Acute kidney failure, unspecified; E87.0 Hyperosmolality and hypernatremia; I69.354 Hemiplegia and hemiparesis following cerebral infarction affecting left non-dominant side; Z74.01 Bed confinement status; E78.5 Hyperlipidemia, unspecified; K21.9 Gastro-esophageal reflux disease without esophagitis; H40.9 Unspecified glaucoma; Y83.8 Other surgical procedures as the cause of abnormal reaction of the patient, or of later complication, without mention of misadventure at the time of the procedure; Z66 Do not resuscitate; E66.01 Morbid (severe) obesity due to excess calories; Z68.39 Body mass index [BMI] 39.0-39.9, adult; I25.10 Atherosclerotic heart disease of native coronary artery without angina pectoris; I69.320 Aphasia following cerebral infarction; M21.372 Foot drop, left foot; M21.371 Foot drop, right foot; G47.33 Obstructive sleep apnea (adult) (pediatric); E11.69 Type 2 diabetes mellitus with other specified complication; G40.909 Epilepsy, unspecified, not intractable, without status epilepticus
CPT/HCPCS: 36416; 36556; 71010; 74176; 80048; 80053; 80202; 82533; 82805; 83605; 83880; 84484; 85025; 85049; 85300; 85362; 85379; 85384; 85610; 85730; 87070; 87086; 87205; 93005; 93306; 94003; 94640; 96365; 96366; 96368; 96375; A4216; J0692; J1644; J1650; J1815; J1940; J1956; J2001; J2060; J2250; J2270; J2704; J2920; J3010; J3370; J3475; J3480; J7050; J7620; Q2009; S0028

== ENCOUNTER 2017-06-19 08:34 | Emergency (ER) | payer MEDICARE, MEDICAID | END 2017-06-19 11:07 | disposition home or self-care (01) | LOC: ERS 08:34 | DX: Z43.0 Encounter for attention to tracheostomy (principal); K21.9 Gastro-esophageal reflux disease without esophagitis; E11.39 Type 2 diabetes mellitus with other diabetic ophthalmic complication; H40.9 Unspecified glaucoma; J44.9 Chronic obstructive pulmonary disease, unspecified; E78.5 Hyperlipidemia, unspecified; I10 Essential (primary) hypertension; F41.9 Anxiety disorder, unspecified; F32.9 Major depressive disorder, single episode, unspecified; Z79.82 Long term (current) use of aspirin; Z79.899 Other long term (current) drug therapy | CPT/HCPCS: 31502 ==

== ENCOUNTER 2017-10-13 00:26 | Emergency (ER) | payer MEDICARE, MEDICAID ==
[2017-10-13] MEDS ORDERED: Acetaminophen 325 MG/10.15 ML UDCUP ONE (01:25)
== END 2017-10-13 02:28 ==
LOC: ERS 00:26
DX: J95.03 Malfunction of tracheostomy stoma (principal); E78.5 Hyperlipidemia, unspecified; E11.39 Type 2 diabetes mellitus with other diabetic ophthalmic complication; H40.9 Unspecified glaucoma; F41.9 Anxiety disorder, unspecified; F32.9 Major depressive disorder, single episode, unspecified; F03.90 Unspecified dementia, unspecified severity, without behavioral disturbance, psychotic disturbance, mood disturbance, and anxiety; K21.9 Gastro-esophageal reflux disease without esophagitis; J44.9 Chronic obstructive pulmonary disease, unspecified
CPT/HCPCS: 99285

== ENCOUNTER 2017-10-26 14:51 | Emergency (ER) | payer MEDICARE, MEDICAID ==
--- NOTE | 2017-10-26 16:24 | RAD ---
CHEST ONE VIEW: 10/26/17 HISTORY: Dyspnea. COMPARISON: 04/18/17. FINDINGS: Cardiac silhouette is magnified by projection. Pulmonary vasculature is less engorged. Mediastinum is midline. No lobar consolidation or evidence of pneumothorax. Irregular lucency over the left scapula are favored to present artifact. filter tank tender leads overlie the chest. IMPRESSION: No active cardiopulmonary abnormalities are demonstrated. POS: [facility]STO
== END 2017-10-26 17:35 | disposition home or self-care (01) ==
LOC: ERS 14:51
DX: R06.02 Shortness of breath (principal); F03.90 Unspecified dementia, unspecified severity, without behavioral disturbance, psychotic disturbance, mood disturbance, and anxiety; K21.9 Gastro-esophageal reflux disease without esophagitis; J44.9 Chronic obstructive pulmonary disease, unspecified; E11.9 Type 2 diabetes mellitus without complications; E78.5 Hyperlipidemia, unspecified; I10 Essential (primary) hypertension; F32.9 Major depressive disorder, single episode, unspecified; F41.9 Anxiety disorder, unspecified; Z79.82 Long term (current) use of aspirin; Z79.899 Other long term (current) drug therapy
CPT/HCPCS: 71045